=== PATIENT | female | born 2000 | race Caucasian/White ===

== ENCOUNTER 2018-02-12 11:05 | Emergency (ER) | payer OTHER ==
[~2018-02-12] VITALS: Ht 149.9 cm; Wt 71.7 kg
--- OUTSIDE RECORDS SUMMARY | 2018-02-12 11:11 | XMS REPORT | Continuity of Care Document ---
Demographics Preferred Language Unknown Marital Status Unknown Yazdanism Affiliation Unknown Race Unknown Ethnic Group Unknown Author Author [facility] Address Unknown Phone Unavailable Allergies There is no data. Medications There is no data. Problems There is no data. Procedures There is no data. Results There is no data. Encounters ACCT No. Visit Date/Time Discharge Status Pt. Type Provider Facility Loc./Unit Complaint [id number] 09/18/2012 14:25:43 RECURRING
--- NOTE | 2018-02-12 11:21 | ED Abdominal Pain ---
General Chief Complaint: Abdominal/GI Problems Stated Complaint: ABD PAIN Source of Information: Patient, Family Exam Limitations: No Limitations History of Present Illness Date Seen by Provider: Feb 12, 2018 Time Seen by Provider: 11:19 Initial Comments To ER with right-sided abdominal pain for the past few days. She was evaluated initially at an ER while she was in [facility]. a few days ago She was told she had a bad gallbladder. She then followed up at [facility] emergency room last night with a CT scan. She was told that she had a bad gallbladder that could rupture at any minute she states. However After getting back to the room she states she was then told that her gallbladder looked fine on CT. She has persistent pain rated at 10 out of 10 worsened by food in the right upper quadrant.Shes Had poor food intake for 2-3 days. She's been able to drink water and Gatorade. No bowel movement for a few days. Timing/Duration: 2-3 Days Severity/Quality: Moderate Location: RUQ Radiation: Back Activities at Onset: None Associated Symptoms: Nausea/Vomiting Allergies and Home Medications Allergies Coded Allergies: oxycodone (Verified Allergy, Unknown, 02/12/18) Home Medications Pantoprazole Sodium 40 Mg Tablet.dr, 40 MG PO DAILY Prescribed by: ELEUTERIO BURGESS on 02/12/18 1252 Patient Home Medication List Home Medication List Reviewed: Yes Review of Systems Constitutional: see HPI EENTM: No Symptoms Reported Respiratory: No Symptoms Reported Cardiovascular: No Symptoms Reported Gastrointestinal: See HPI, Abdominal Pain, Nausea Genitourinary: No Symptoms Reported Musculoskeletal: no symptoms reported Skin: no symptoms reported Psychiatric/Neurological: No Symptoms Reported Endocrine: No Symptoms Reported Hematologic/Lymphatic: No Symptoms Reported Past Ynfzchc-Mjpgjo-Rlfkgn Hx Patient Social History Recent Foreign Travel: No Contact w/Someone Who Travel: No Physical Exam Vital Signs Vital Signs - First Documented 02/12/18 11:18 Temp 98.0 Pulse 67 Resp 20 B/P (MAP) 117/75 Capillary Refill : Height/Weight/BMI Height: '" Weight: lbs. oz. kg; BMI Method: General Appearance: WD/WN, no apparent distress, other (stoic, rates pain at "10 out of 10, Im just used to it by now") HEENT: PERRL/EOMI, normal ENT inspection Respiratory: normal breath sounds, no respiratory distress, no accessory muscle use Cardiovascular: regular rate, rhythm, no murmur Gastrointestinal: normal bowel sounds, soft, tenderness Extremities: normal range of motion, non-tender Neurologic/Psychiatric: alert, normal mood/affect, oriented x 3 Skin: normal color, warm/dry Progress/Results/Core Measures Results/Orders Lab Results Laboratory Tests Test 02/12/18 11:16 Range/Units White Blood Count 6.1 4.3-11.0 10^3/uL Red Blood Count 4.70 4.35-5.85 10^6/uL Hemoglobin 12.6 11.5-16.0 G/DL Hematocrit 39 35-52 % Mean Corpuscular Volume 83 80-99 FL Mean Corpuscular Hemoglobin 27 25-34 PG Mean Corpuscular Hemoglobin Concent 32 32-36 G/DL Red Cell Distribution Width 14.7 H 10.0-14.5 % Platelet Count 274 130-400 10^3/uL Mean Platelet Volume 10.0 7.4-10.4 FL Neutrophils (%) (Auto) 43 42-75 % Lymphocytes (%) (Auto) 47 H 12-44 % Monocytes (%) (Auto) 10 0-12 % Eosinophils (%) (Auto) 1 0-10 % Basophils (%) (Auto) 0 0-10 % Neutrophils # (Auto) 2.6 1.8-7.8 X 10^3 Lymphocytes # (Auto) 2.8 1.0-4.0 X 10^3 Monocytes # (Auto) 0.6 0.0-1.0 X 10^3 Eosinophils # (Auto) 0.0 0.0-0.3 10^3/uL Basophils # (Auto) 0.0 0.0-0.1 10^3/uL Sodium Level 141 135-145 MMOL/L Potassium Level 4.1 3.6-5.0 MMOL/L Chloride Level 108 H 98-107 MMOL/L Carbon Dioxide Level 26 21-32 MMOL/L Anion Gap 7 5-14 MMOL/L Blood Urea Nitrogen 9 7-18 MG/DL Creatinine 0.74 0.60-1.30 MG/DL Estimat Glomerular Filtration Rate > 60 BUN/Creatinine Ratio 12 Glucose Level 90 70-105 MG/DL Calcium Level 9.2 8.5-10.1 MG/DL Total Bilirubin 0.7 0.1-1.0 MG/DL Aspartate Amino Transf (AST/SGOT) 25 5-34 U/L Alanine Aminotransferase (ALT/SGPT) 31 0-55 U/L Alkaline Phosphatase 102 40-136 U/L Total Protein 7.3 6.4-8.2 GM/DL Albumin 4.5 3.2-4.5 GM/DL Lipase 17 8-78 U/L Serum Test, Qualitative NEGATIVE NEGATIVE My Orders Orders - ELEUTERIO BURGESS APRN Cbc With Automated Diff (02/12/18 11:17) Lipase (02/12/18 11:17) Comprehensive Metabolic Panel (02/12/18 11:17) Hcg,Qualitative Serum (02/12/18 11:17) Ketorolac Injection (Toradol Injection) (02/12/18 11:30) Fentanyl Injection (Sublimaze Injection (02/12/18 11:30) Ondansetron Injection (Zofran Injectio (02/12/18 11:30) Us Gallbladder [id number] (02/12/18 11:17) Antacid Suspension (Mylanta Suspension (02/12/18 12:30) Lidocaine 2% Viscous 15 Ml (Xylocaine Vi (02/12/18 12:30) Medications Given in ED Current Medications Medications Dose Ordered Sig/Christiano Route Start Time Stop Time Status Last Admin Dose Admin Al Hydrox/Mg Hydrox/Simethicone 30 ml ONCE ONCE PO 02/12/18 12:30 02/12/18 12:31 DC 02/12/18 12:31 30 ML Fentanyl Citrate 50 mcg ONCE ONCE IVP 02/12/18 11:30 02/12/18 11:31 DC 02/12/18 11:39 50 MCG Ketorolac Tromethamine 15 mg ONCE ONCE IVP 02/12/18 11:30 02/12/18 11:31 DC 02/12/18 11:39 15 MG Lidocaine HCl 15 ml ONCE ONCE PO 02/12/18 12:30 02/12/18 12:31 DC 02/12/18 12:31 15 ML Ondansetron HCl 4 mg ONCE ONCE IVP 02/12/18 11:30 02/12/18 11:31 DC 02/12/18 11:39 4 MG Vital Signs/I&O 02/12/18 11:18 Temp 98.0 Pulse 67 Resp 20 B/P (MAP) 117/75 Diagnostic Imaging Diagonstic Imaging: Ultrasound Comments NAME: [facility] REC#: [id number] PT STATUS: REG ER : 2000 PHYSICIAN: ELEUTERIO BURGESS APRN ADMIT DATE: 02/12/18/ER Draft Date of Exam:02/12/18 US GALLBLADDER [id number] PROCEDURE: US Gallbladder. TECHNIQUE: Multiple real-time grayscale images were obtained over the right upper quadrant in various projections. INDICATION: Right upper quadrant pain. FINDINGS: The liver is normal in size and without focal lesions. There is no biliary ductal dilatation. Common bile duct is not well visualized. There is no cholelithiasis, gallbladder wall thickening or pericholecystic fluid. Pancreas is obscured by bowel gas. Right kidney is normal. There is no ascites. IMPRESSION: Common bile duct and pancreas are obscured by bowel gas. Otherwise unremarkable right upper quadrant ultrasound. Dictated on workstation # [id number] Dict: 02/12/18 1238 Trans: 02/12/18 1244 [id number] Interpreted by: YANNICK ELI MD Electronically signed by: Departure Communication (Admissions) Reports that the GI cocktail "made it worse". Impression Primary Impression: RUQ abdominal pain Disposition: 01 HOME, SELF-CARE Condition: Stable Departure-Patient Inst. Decision time for Depature: 12:50 Referrals: BEAU VELÁSQUEZ DO NO,LOCAL PHYSICIAN (PCP) Primary Care Physician Patient Instructions: Acute Abdomen (Belly Pain), Adult (DC) Add. Discharge Instructions: 1. Youre scheduled to see Dr. Velásquez tomorrow at 1 PM. They asked that you bring your address, phone number, insurance card (only if you have insurance, dont worry about it if you dont) and $50 for the visit . He will help decide whether you'll need an upper GI scope or a HIDA further evaluate the cause of your pain. Take acid pipe and test supervisor as directed. Return to ER for any concerns. As long as you're taking the pain medication that was prescribed at the other hospital, he also need to be taking a stool softener such as Colace or MiraLAX so that you do not get constipated as pain medications are very constipating which will only worsen her pain. All discharge instructions reviewed with patient and/or family. Voiced understanding. Scripts Pantoprazole Sodium (Protonix) 40 Mg Tablet. 40 MG PO DAILY, #20 TAB Prov: ELEUTERIO BURGESS APRN 02/12/18 Work/School Note: Work Release Form Date Seen in the Emergency Department: Feb 12, 2018 Return to Work: Feb 14, 2018 Copy Copies To 1: JUNIE LOGAN DO; BEAU VELÁSQUEZ DO ELEUTERIO BURGESS APRN Feb 12, 2018 11:20
[2018-02-12] MEDS ORDERED: HYDR-3812 PO (11:28)
[2018-02-12] MEDS ORDERED: KETOROLAC 30 MG/ML VIAL IVP ONE (11:30)
[2018-02-12] MEDS ORDERED: fentaNYL INJECTION 100 MCG/2 ML AMP IVP ONE (11:30)
[2018-02-12] MEDS ORDERED: ONDANSETRON 4 MG/2 ML (SDV) Z0FRAN IVP ONE (11:30)
[2018-02-12 11:31] LABS: BASOPHILS % (AUTO) 0 % (0-10); EOSINOPHILS % (AUTO) 1 % (0-10); HEMATOCRIT 39 % (35-52); HEMOGLOBIN 12.6 G/DL (11.5-16.0); LYMPHOCYTES # (AUTO) 2.8 X 10^3 (1.0-4.0); LYMPHOCYTES % (AUTO) 47 % (12-44); MEAN CORPUSCULAR HEMOGLOBIN 27 PG (25-34); MEAN CORPUSCULAR HGB CONC 32 G/DL (32-36); MEAN CORPUSCULAR VOLUME 83 FL (80-99); MONOCYTES # (AUTO) 0.6 X 10^3 (0.0-1.0); MONOCYTES % (AUTO) 10 % (0-12); NEUTROPHILS # (AUTO) 2.6 X 10^3 (1.8-7.8); NEUTROPHILS % (AUTO) 43 % (42-75); PLATELET COUNT 274 10^3/uL (130-400); RED CELL DISTRIBUTION WIDTH 14.7 % (10.0-14.5); WHITE BLOOD COUNT 6.1 10^3/uL (4.3-11.0)
[2018-02-12 11:43] LABS: ALANINE AMINOTRANSFERASE 31 U/L (0-55); ALBUMIN 4.5 GM/DL (3.2-4.5); ALKALINE PHOSPHATASE 102 U/L (40-136); BILIRUBIN,TOTAL 0.7 MG/DL (0.1-1.0); BUN/CREATININE RATIO 12; CALCIUM 9.2 MG/DL (8.5-10.1); CARBON DIOXIDE 26 MMOL/L (21-32); CHLORIDE 108 MMOL/L (98-107); CREATININE SERUM 0.74 MG/DL (0.60-1.30); GFR ESTIMATED > 60; GLUCOSE 90 MG/DL (70-105); LIPASE 17 U/L (8-78); POTASSIUM 4.1 MMOL/L (3.6-5.0); SODIUM 141 MMOL/L (135-145); TOTAL PROTEIN 7.3 GM/DL (6.4-8.2)
[2018-02-12] MEDS ORDERED: ANTACID SUSP 30 ML UDC (MYLANTA) PO ONE (12:30)
[2018-02-12] MEDS ORDERED: LIDOCAINE 2% VISCOUS 15 ML UDC PO ONE (12:30)
--- NOTE | 2018-02-12 12:44 | Diagnostic Imaging Report ---
PROCEDURE: US Gallbladder. TECHNIQUE: Multiple real-time grayscale images were obtained over the right upper quadrant in various projections. INDICATION: Right upper quadrant pain. FINDINGS: The liver is normal in size and without focal lesions. There is no biliary ductal dilatation. Common bile duct is not well visualized. There is no cholelithiasis, gallbladder wall thickening or pericholecystic fluid. Pancreas is obscured by bowel gas. Right kidney is normal. There is no ascites. IMPRESSION: Common bile duct and pancreas are obscured by bowel gas. Otherwise unremarkable right upper quadrant ultrasound. Dictated by: Dictated on workstation # [id number]
[2018-02-12] MEDS ORDERED: PANT40TA2 PO (12:52)
== END 2018-02-12 13:14 | disposition home or self-care (01) ==
LOC: EDUNIT# 11:05 → ER 11:07
DX: R10.11 Right upper quadrant pain (principal); Z88.5 Allergy status to narcotic agent
CPT/HCPCS: 36415; 76705; 80053; 83690; 84703; 85025; 96374; 96375

== ENCOUNTER 2018-02-14 16:35 | Emergency (ER) | payer OTHER ==
[~2018-02-14] VITALS: Ht 149.9 cm; Wt 71.7 kg
[~2018-02-14 16:35] MED LIST: HYDR-3812 PO; PANT40TA2 PO
--- OUTSIDE RECORDS SUMMARY | 2018-02-14 16:40 | XMS REPORT | Continuity of Care Document ---
Demographics Preferred Language Unknown Marital Status Unknown Evangelical Affiliation Unknown Race Unknown Ethnic Group Unknown Author Author [facility] Address Unknown Phone Unavailable Allergies Active Description Code Type Severity Reaction Onset Reported/Identified Relationship to Patient Clinical Status Yes Oxycontin 946 Miscellaneous Allergy N/A N/A 02/11/2018 Medications There is no data. Problems There is no data. Procedures There is no data. Results Test Result Range CBC/ AUTO DIFF - 02/09/18 15:45 WHITE BLOOD COUNT 7.62 10 4.5-13.0 HEMATOCRIT 42.9 % 36.0-46.0 HEMOGLOBIN 13.9 g/dl 12.0-16.0 PLATELET COUNT 272 10 142-424 RBC 5.23 10 4.0-5.2 MCV 82.0 fl 80.0-100.0 MCH 26.6 pg 26.0-34.0 MCHC 32.4 g/dl 29.0-37.0 RDW 14.4 % 11.5-14.5 MPV 9.90 fl GRAN% 52.8 % 37.0-80.0 LYMPH% 37.50 % 10.00-50.00 MONO% 8.70 % 0.00-12.00 EOS% 0.70 % 0.00-7.00 BASO% 0.30 % 0.00-2.50 GRAN# 4.03 10 2.00-6.90 LYMPH# 2.86 10 0.60-3.40 MONO# 0.66 10 0.00-0.90 EOS# 0.05 10 0.00-0.50 BASO# 0.02 10 0.00-0.20 COMPREHENSIVE METABOL - 02/09/18 15:45 CREATININE 0.7 mg/dl 0.6-1.3 SODIUM 141 mmol/L 136-145 TOTAL BILIRUBIN 0.3 mg/dl 0.0-1.0 TOTAL PROTEIN 8.5 g/dl 6.4-8.2 ALBUMIN 4.2 g/dl 3.4-5.0 ALK. PHOSPHATASE 119 U/L 50-136 BUN 11 mg/dl 7-18 CALCIUM 9.5 mg/dl 8.5-10.1 CHLORIDE 102 mmol/L 98-107 CO2 32.4 mmol/L 21.0-32.0 GLUCOSE 87 mg/dl 70-110 POTASSIUM 3.8 mmol/L 3.5-5.1 AST 23 U/L 15-37 ALT 43 U/L 12-78 AGAP 10.4 6.0-16.0 BN/CR 15.7 6.0-20.0 AMYLASE - 02/09/18 15:45 AMYLASE 63 U/L 25-115 LIPASE - 02/09/18 15:45 LIPASE 127 U/L 73-393 Encounters ACCT No. Visit Date/Time Discharge Status Pt. Type Provider Facility Loc./Unit Complaint [id number] 09/18/2012 14:25:43 RECURRING [id number] 02/09/2018 15:04:00 02/09/2018 17:05:00 DIS Emergency MAGALYS JUNE ( [facility]
--- NOTE | 2018-02-14 17:33 | ED GI ---
General Chief Complaint: Abdominal/GI Problems Stated Complaint: VOMITING BLOOD Nursing Triage Note: PATIENT HERE AFTER HAVING SEVERAL ER VISITS IN THE LAST WEEK FOR ABDOMINAL PAIN. SHE SAW DR. AGUAYO YESTERDAY AND IS SCHEDULED FOR AN UPPER GI SCOPE ON SUNDAY NEXT WEEK. SHE IS HERE TODAY BECAUSE SHE VOMITED X1 THIS MORNING IN THE SHOWER. STATES IT WAS YELLOW IN APPEARANCE WITH SOME RED FLECKS OF BLOOD. Source of Information: Patient Exam Limitations: No Limitations History of Present Illness Date Seen by Provider: Feb 14, 2018 Time Seen by Provider: 17:28 Initial Comments The patient is a 19/70 be 18-year-old white female. She reports here today with complaints of vomiting, abdominal pain, and some flecks of blood. She also reports black stools but has been taking Pepto-Bismol. She has had several admissions to the emergency room for abdominal pain. She has seen Dr. Aguayo and has been scheduled for an upper endoscopy on Sunday. She reports that she was in the shower this morning and then felt nauseated and vomited with flecks of blood. She reports one other previous vomitus with flecks of blood. She is taking Severity/Quality: Mild, Moderate Location: RUQ, RLQ, Other (some heartburn) Radiation: No Radiation Associated Symptoms: Denies Symptoms Allergies and Home Medications Allergies Coded Allergies: oxycodone (Verified Allergy, Unknown, 02/12/18) Home Medications Pantoprazole Sodium 40 Mg Tablet.dr, 40 MG PO DAILY Prescribed by: ELEUTERIO BURGESS on 02/12/18 1252 Review of Systems Constitutional: see HPI EENTM: No Symptoms Reported Respiratory: No Symptoms Reported Cardiovascular: No Symptoms Reported Gastrointestinal: See HPI Genitourinary: No Symptoms Reported Musculoskeletal: no symptoms reported Skin: no symptoms reported Psychiatric/Neurological: No Symptoms Reported Endocrine: No Symptoms Reported Past Mrlsmel-Iwntac-Iakaun Hx Patient Social History Alcohol Use: Denies Use Recreational Drug Use: No Type Used: Cigarettes Recent Foreign Travel: No Contact w/Someone Who Travel: No Recent Infectious Disease Expo: No Ebola Symptoms: Denies Symptoms Listed Physical Abuse: No Sexual Abuse: No Past Medical History Orthopedic Respiratory: No Cardiac: No Neurological: No Genitourinary: No Gastrointestinal: No Musculoskeletal: No Endocrine: No HEENT: No Cancer: No Psychosocial: No Nursing Suicide Risk Score: 0 Integumentary: No Blood Disorders: No Physical Exam Vital Signs Vital Signs - First Documented 02/14/18 16:42 Temp 97.8 Pulse 92 Resp 20 B/P (MAP) 108/64 Capillary Refill : Height/Weight/BMI Height: 4'11.00" Weight: 158lbs. 0oz. 71.148288wt; 28.12 BMI Method:Stated General Appearance: WD/WN, no apparent distress HEENT: normal ENT inspection Neck: full range of motion Respiratory: chest non-tender, lungs clear, normal breath sounds, no respiratory distress, no accessory muscle use Cardiovascular: normal peripheral pulses, regular rate, rhythm, no edema, no gallop, no JVD, no murmur Gastrointestinal: normal bowel sounds, non tender, soft, no organomegaly, no pulsatile mass Extremities: normal range of motion, non-tender, normal inspection, no pedal edema, no calf tenderness Back: normal inspection Neurologic/Psychiatric: rigger apprentice II-XII nml as tested, no motor/sensory deficits, alert, normal mood/affect, oriented x 3 Skin: normal color, warm/dry Lymphatic: no adenopathy Progress/Results/Core Measures Results/Orders My Orders Orders - JULEE GOMEZ MD Cbc With Automated Diff (02/14/18 17:17) Comprehensive Metabolic Panel (02/14/18 17:17) Vital Signs/I&O 02/14/18 16:42 Temp 97.8 Pulse 92 Resp 20 B/P (MAP) 108/64 Departure Departure-Patient Inst. Referrals: NO,LOCAL PHYSICIAN (PCP/Family) Primary Care Physician JULEE GOMEZ MD Feb 14, 2018 17:32
== END 2018-02-14 17:40 | disposition left against medical advice (07) ==
LOC: EDUNIT# 16:35 → ER 16:37
DX: K92.0 Hematemesis (principal); R10.11 Right upper quadrant pain; R10.12 Left upper quadrant pain; K21.9 Gastro-esophageal reflux disease without esophagitis; Z88.8 Allergy status to other drugs, medicaments and biological substances
CPT/HCPCS: 99282

== ENCOUNTER 2018-02-21 05:36 | Outpatient (CLI) | payer OTHER ==
[~2018-02-21] VITALS: Ht 149.9 cm; Wt 73.9 kg
== END 2018-02-21 11:40 | disposition home or self-care (01) ==
LOC: PREOP 05:36
PROVIDERS: ATTEND Surgery
DX: Z01.818 Encounter for other preprocedural examination (principal)

== ENCOUNTER 2018-09-21 16:18 | Emergency (ER) | payer SELFPAY ==
[~2018-09-21] VITALS: Ht 170.2 cm; Wt 81.6 kg
--- NOTE | 2018-09-21 16:31 | ED Lower Extremity ---
General Stated Complaint: FOOT INJURY History of Present Illness Date Seen by Provider: Sep 21, 2018 Time Seen by Provider: 16:20 Initial Comments 18-year-old female who stepped on an unknown sharp object when walking in a field. She states her some boards with nails and screws protruding although she did not see the actual thing that she stepped on. Occurred just a few minutes ago. Has had some bleeding which is now stopped and pain since. Denies other known medical problems. Onset: just prior to arrival Pain/Injury Location: left foot Allergies and Home Medications Allergies Coded Allergies: oxycodone (Verified Allergy, Unknown, 02/12/18) Home Medications Pantoprazole Sodium 40 Mg Tablet.dr, 40 MG PO DAILY Prescribed by: BEAU VELÁSQUEZ on 02/26/18 1203 Patient Home Medication List Home Medication List Reviewed: Yes Review of Systems Constitutional: see HPI EENTM: see HPI Respiratory: no symptoms reported Cardiovascular: no symptoms reported Gastrointestinal: no symptoms reported Genitourinary: no symptoms reported Musculoskeletal: see HPI Skin: see HPI Psychiatric/Neurological: No Symptoms Reported All Other Systems Reviewed Negative Unless Noted: Yes (Negative excepted noted.) Past Pjfubmb-Ckgnro-Gtddsq Hx Past Med/Social Hx: Reviewed Nursing Past Med/Soc Hx Patient Social History Smoking Status: Former Smoker Type Used: Cigarettes Recent Foreign Travel: No (N) Contact w/Someone Who Travel: No (N) Recent Hopitalizations: No Seasonal Allergies Seasonal Allergies: No Past Medical History Orthopedic Respiratory: No Cardiac: No Neurological: No Reproductive Disorders: No Genitourinary: No Gastrointestinal: No Musculoskeletal: No Endocrine: No HEENT: No Cancer: No Psychosocial: No Depression Integumentary: No Blood Disorders: No Physical Exam Vital Signs Vital Signs - First Documented 09/21/18 16:32 Temp 98.9 Pulse 113 Resp 18 B/P (MAP) 118/69 (85) Pulse Ox 98 O2 Delivery Room Air Capillary Refill : Height, Weight, BMI Height: 4'11.00" Weight: 163lbs. 0.0oz. 73.481521fs; 32.9 BMI Method:Stated General Appearance: WD/WN, no apparent distress HEENT: normal ENT inspection Neck: non-tender, full range of motion, supple, normal inspection Cardiovascular: normal peripheral pulses, regular rate, rhythm, no edema, no gallop, no JVD, no murmur Respiratory: chest non-tender, lungs clear, normal breath sounds, no respiratory distress, no accessory muscle use Gastrointestinal: normal bowel sounds, non tender, soft, no organomegaly, no pulsatile mass Back: normal inspection, no CVA tenderness, no vertebral tenderness Hips: bilateral hip non-tender, bilateral hip normal inspection, bilateral hip normal range of motion Legs: bilateral leg non-tender, bilateral leg normal inspection, bilateral leg normal range of motion Knees: bilateral knee non-tender, bilateral knee normal inspection, bilateral knee normal range of motion Ankles: bilateral ankle non-tender, bilateral ankle normal inspection, bilateral ankle normal range of motion Feet: left foot pain, left foot other (puncture wound between the fourth and fifth toe at the MTP. This is on the plantar surface.) Neurologic/Tendon: normal sensation, normal motor functions Neurologic/Psychiatric: no motor/sensory deficits Skin: normal color, warm/dry Lymphatic: no adenopathy Progress/Results/Core Measures Results/Orders My Orders Orders - RAMÓN GONZALES MD Foot 3 View Left (09/21/18 16:27) Ibuprofen Tablet (Motrin Tablet) (09/21/18 16:59) Vital Signs/I&O 09/21/18 16:32 Temp 98.9 Pulse 113 Resp 18 B/P (MAP) 118/69 (85) Pulse Ox 98 O2 Delivery Room Air Progress Progress Note : Time: 16:31 Progress Note Tetanus vaccine is reportedly current. We'll obtain a radiograph to rule out foreign body or bony injury. Discussed at length with patient and mother. 1729 Pain improved after ibuprofen. Reviewed x-ray findings. Will cover with abx and treat pain with ibuprofen. Diagnostic Imaging Diagonstic Imaging: Xray Plain Films/CT/US/NM/MRI: other (foot) Comments No bony abnormalities. JDO Departure Impression Primary Impression: Puncture wound of foot excluding toes without complication Qualified Codes: S91.332A - Puncture wound without foreign body, left foot, initial encounter Disposition: 01 HOME, SELF-CARE Condition: Improved Departure-Patient Inst. Decision time for Depature: 17:31 Referrals: NO,LOCAL PHYSICIAN (PCP/Family) Primary Care Physician 2-3 days, sooner as needed. Patient Instructions: Wound Care (DC) Add. Discharge Instructions: Keep clean and dry. Scripts Ibuprofen (Ibuprofen) 800 Mg Tablet 800 MG PO Q8H PRN for PAIN, #30 TAB 0 Refills Prov: RAMÓN GONZALES MD 09/21/18 Cephalexin (Cephalexin) 500 Mg Tablet 500 MG PO QID, #20 TAB 0 Refills Prov: RAMÓN GONZALES MD 09/21/18 RAMÓN GONZALES MD Sep 21, 2018 16:31
[2018-09-21] MEDS ORDERED: IBUPROFEN 800 MG (MOTRIN) TAB PO STA (16:59)
[2018-09-21] MEDS ORDERED: CEPH500T PO (17:32)
[2018-09-21] MEDS ORDERED: IBUP-1780 PO (17:33)
--- NOTE | 2018-09-21 17:45 | Diagnostic Imaging Report ---
INDICATION: Puncture wound. EXAMINATION: Left foot at 4:57 p.m. Three views were obtained. COMPARISON: There are no prior studies available for comparison. FINDINGS: Reportedly, there is clinical concern regarding a puncture wound to the plantar surface of the foot. On the lateral view, there is no sign of a radiopaque foreign body. There is no fracture or acute bony abnormality appreciated either. IMPRESSION: There is no evidence for a radiopaque foreign body or for an acute bony abnormality. Dictated by: Dictated on workstation # [id number]
[2018-09-21 17:49] VITALS: BP 118/69
== END 2018-09-21 17:49 | disposition home or self-care (01) ==
LOC: EDUNIT# 16:18 → ER FS 16:20
DX: S91.332A Puncture wound without foreign body, left foot, initial encounter (principal); F32.9 Major depressive disorder, single episode, unspecified; Z88.5 Allergy status to narcotic agent; Z87.891 Personal history of nicotine dependence; W45.0XXA Nail entering through skin, initial encounter; Y92.328 Other athletic field as the place of occurrence of the external cause; Y93.01 Activity, walking, marching and hiking
CPT/HCPCS: 73630

== ENCOUNTER 2020-01-16 19:47 | Emergency (ER) | payer SELFPAY ==
[~2020-01-16] VITALS: Ht 152.4 cm; Wt 75.5 kg
[~2020-01-16 19:47] MED LIST changes: +ACHD5005 PO; +CEPH500T PO; -HYDR-3812 PO; +IBUP-1780 PO
--- NOTE | 2020-01-16 19:49 | ED General ---
General Stated Complaint: ALCOHOL POISONING History of Present Illness Date Seen by Provider: Jan 16, 2020 Time Seen by Provider: 19:49 Initial Comments 19-year-old female dropped off in the ER. Patient was dropped off because she's dry heaving and highly intoxicated. Patient drank a lot of "Everclear" patient feels sick to her stomach. No reports of her try to hurt herself, no fevers chills or other systemic complaints. Allergies and Home Medications Allergies Coded Allergies: oxycodone (Verified Allergy, Unknown, 02/12/18) Home Medications Cephalexin 500 Mg Tablet, 500 MG PO QID Prescribed by: RAMÓN GONZALES on 09/21/18 1732 Ibuprofen 800 Mg Tablet, 800 MG PO Q8H PRN for PAIN Prescribed by: RAMÓN GONZALES on 09/21/18 1733 Pantoprazole Sodium 40 Mg Tablet.dr, 40 MG PO DAILY Prescribed by: BEAU VELÁSQUEZ on 02/26/18 1203 Patient Home Medication List Home Medication List Reviewed: Yes Review of Systems Review of Systems Constitutional: No chills, No fever EENTM: no symptoms reported Respiratory: no symptoms reported Gastrointestinal: nausea, vomiting Genitourinary: no symptoms reported Musculoskeletal: no symptoms reported Skin: no symptoms reported Past Rpqmbrm-Gmblcc-Nmmfoc Hx Past Med/Social Hx: Reviewed Nursing Past Med/Soc Hx Physical Exam Vital Signs Vital Signs - First Documented 01/16/20 19:47 Temp 36.7 Pulse 84 Resp 15 B/P (MAP) 126/75 (92) Pulse Ox 97 O2 Delivery Room Air Capillary Refill : Height, Weight, BMI Height: '" Weight: lbs. oz. kg; BMI Method: General Appearance: Other (obviously intoxicated) Eyes: Bilateral Eye Normal Inspection Neck: Normal Inspection, Non Tender Respiratory: Lungs Clear, Normal Breath Sounds Cardiovascular: Regular Rate, Rhythm, Normal Peripheral Pulses Gastrointestinal: Non Tender, Soft Extremity: Normal Capillary Refill Neurologic/Psychiatric: Other (intoxicated but no acute neurologic findings) Skin: Normal Color, Warm/Dry Progress/Results/Core Measures Suspected Sepsis SIRS Temperature: Pulse: Respiratory Rate: Laboratory Tests 01/16/20 19:55: White Blood Count 8.4 Blood Pressure / Mean: Laboratory Tests 01/16/20 19:55: Creatinine 0.74, Platelet Count 354, Total Bilirubin 0.3 Results/Orders Lab Results Laboratory Tests Test 01/16/20 19:55 01/16/20 20:00 Range/Units White Blood Count 8.4 4.3-11.0 10^3/uL Red Blood Count 5.19 4.35-5.85 10^6/uL Hemoglobin 14.2 11.5-16.0 G/DL Hematocrit 43 35-52 % Mean Corpuscular Volume 83 80-99 FL Mean Corpuscular Hemoglobin 27 25-34 PG Mean Corpuscular Hemoglobin Concent 33 32-36 G/DL Red Cell Distribution Width 13.0 10.0-14.5 % Platelet Count 354 130-400 10^3/uL Mean Platelet Volume 9.8 7.4-10.4 FL Neutrophils (%) (Auto) 61 42-75 % Lymphocytes (%) (Auto) 30 12-44 % Monocytes (%) (Auto) 6 0-12 % Eosinophils (%) (Auto) 2 0-10 % Basophils (%) (Auto) 0 0-10 % Neutrophils # (Auto) 5.1 1.8-7.8 X 10^3 Lymphocytes # (Auto) 2.5 1.0-4.0 X 10^3 Monocytes # (Auto) 0.5 0.0-1.0 X 10^3 Eosinophils # (Auto) 0.2 0.0-0.3 10^3/uL Basophils # (Auto) 0.0 0.0-0.1 10^3/uL Sodium Level 142 135-145 MMOL/L Potassium Level 3.6 3.6-5.0 MMOL/L Chloride Level 103 98-107 MMOL/L Carbon Dioxide Level 23 21-32 MMOL/L Anion Gap 16 H 5-14 MMOL/L Blood Urea Nitrogen 9 7-18 MG/DL Creatinine 0.74 0.60-1.30 MG/DL Estimat Glomerular Filtration Rate > 60 BUN/Creatinine Ratio 12 Glucose Level 117 H 70-105 MG/DL Calcium Level 9.5 8.5-10.1 MG/DL Corrected Calcium 8.5-10.1 MG/DL Total Bilirubin 0.3 0.1-1.0 MG/DL Aspartate Amino Transf (AST/SGOT) 28 5-34 U/L Alanine Aminotransferase (ALT/SGPT) 35 0-55 U/L Alkaline Phosphatase 118 40-136 U/L Total Protein 8.2 6.4-8.2 GM/DL Albumin 5.0 H 3.2-4.5 GM/DL Salicylates Level 0.7 L 5.0-20.0 MG/DL Acetaminophen Level < 10 L 10-30 UG/ML Serum Alcohol 100 H <10 MG/DL Urine Color YELLOW Urine Clarity CLEAR Urine pH 5.5 5-9 Urine Specific [place] 1.010 L 1.016-1.022 Urine Protein NEGATIVE NEGATIVE Urine Glucose (UA) NEGATIVE NEGATIVE Urine Ketones NEGATIVE NEGATIVE Urine Nitrite NEGATIVE NEGATIVE Urine Bilirubin NEGATIVE NEGATIVE Urine Urobilinogen 0.2 < = 1.0 MG/DL Urine Leukocyte Esterase TRACE H NEGATIVE Urine RBC (Auto) 1+ H NEGATIVE Urine RBC NONE /HPF Urine WBC 5-10 H /HPF Urine Squamous Epithelial Cells 10-25 H /HPF Urine Crystals NONE /LPF Urine Bacteria FEW H /HPF Urine Casts PRESENT /LPF Urine Hyaline Casts 2-5 H /LPF Urine Mucus NEGATIVE /LPF Urine Culture Indicated YES Urine Opiates Screen NEGATIVE NEGATIVE Urine Oxycodone Screen NEGATIVE NEGATIVE Urine Methadone Screen NEGATIVE NEGATIVE Urine Propoxyphene Screen NEGATIVE NEGATIVE Urine Barbiturates Screen NEGATIVE NEGATIVE Ur Tricyclic Antidepressants Screen NEGATIVE NEGATIVE Urine Phencyclidine Screen NEGATIVE NEGATIVE Urine Amphetamines Screen NEGATIVE NEGATIVE Urine Methamphetamines Screen NEGATIVE NEGATIVE Urine Benzodiazepines Screen NEGATIVE NEGATIVE Urine Cocaine Screen NEGATIVE NEGATIVE Urine Cannabinoids Screen NEGATIVE NEGATIVE My Orders Orders - GARCIA,THAD L DO Ua Culture If Indicated (01/16/20 19:49) Cbc With Automated Diff (01/16/20 19:49) Comprehensive Metabolic Panel (01/16/20 19:49) Alcohol (01/16/20 19:49) Drug Screen Stat (Urine) (01/16/20 19:49) Acetaminophen (01/16/20 19:49) Salicylate (01/16/20 19:49) Ed Iv/Invasive Line Start (01/16/20 19:49) Ed Iv/Invasive Line Start (01/16/20 19:49) Ondansetron Injection (Zofran Injectio (01/16/20 20:00) Lactated Ringers (Lr 1000 Ml Iv Solution (01/16/20 19:51) Urine Culture (01/16/20 20:00) Medications Given in ED Current Medications Medications Dose Ordered Sig/Christiano Route Start Time Stop Time Status Last Admin Dose Admin Ondansetron HCl 4 mg ONCE ONCE IVP 01/16/20 20:00 01/16/20 20:01 DC 01/16/20 19:58 4 MG Vital Signs/I&O 01/16/20 19:47 Temp 36.7 Pulse 84 Resp 15 B/P (MAP) 126/75 (92) Pulse Ox 97 O2 Delivery Room Air Capillary Refill : Departure Impression Primary Impression: Acute alcoholic intoxication Qualified Codes: F10.920 - Alcohol use, unspecified with intoxication, uncomplicated Disposition: 01 HOME, SELF-CARE Condition: Stable Departure-Patient Inst. Patient Instructions: Effects of Alcohol on Your Health, Alcohol Use - When Is Drinking a Problem? THAD GARCIA DO Jan 16, 2020 19:49
[2020-01-16] MEDS ORDERED: LACTATED RINGERS 1,000 ML IV STA (19:51)
[2020-01-16] MEDS ORDERED: ONDANSETRON 4 MG/2 ML (SDV) Z0FRAN IVP ONE (20:00)
--- NOTE | 2020-01-16 20:00 | NUR ---
pt able to ambulate to bathroom without difficulty
[2020-01-16 20:11] LABS: BASOPHILS % (AUTO) 0 % (0-10); EOSINOPHILS # (AUTO) 0.2 10^3/uL (0.0-0.3); EOSINOPHILS % (AUTO) 2 % (0-10); HEMATOCRIT 43 % (35-52); HEMOGLOBIN 14.2 G/DL (11.5-16.0); LYMPHOCYTES # (AUTO) 2.5 X 10^3 (1.0-4.0); LYMPHOCYTES % (AUTO) 30 % (12-44); MEAN CORPUSCULAR HEMOGLOBIN 27 PG (25-34); MEAN CORPUSCULAR HGB CONC 33 G/DL (32-36); MEAN CORPUSCULAR VOLUME 83 FL (80-99); MEAN PLATELET VOLUME 9.8 FL (7.4-10.4); MONOCYTES # (AUTO) 0.5 X 10^3 (0.0-1.0); MONOCYTES % (AUTO) 6 % (0-12); NEUTROPHILS # (AUTO) 5.1 X 10^3 (1.8-7.8); NEUTROPHILS % (AUTO) 61 % (42-75); PLATELET COUNT 354 10^3/uL (130-400); WHITE BLOOD COUNT 8.4 10^3/uL (4.3-11.0)
[2020-01-16 20:12] LABS: BACTERIA,URINE FEW /HPF; BILIRUBIN,URINE NEGATIVE (NEGATIVE); CLARITY,URINE CLEAR; COLOR,URINE YELLOW; GLUCOSE, URINE (UA) NEGATIVE (NEGATIVE); KETONES,URINE NEGATIVE (NEGATIVE); LEUKOCYTE ESTERASE ,URINE TRACE (NEGATIVE); NITRITE,URINE NEGATIVE (NEGATIVE); PH,URINE 5.5 (5-9); PROTEIN,URINE NEGATIVE (NEGATIVE)
[2020-01-16 20:14] LABS: AMPHETAMINE SCREEN, URINE NEGATIVE (NEGATIVE); BARBITURATE SCREEN URINE NEGATIVE (NEGATIVE); BENZODIAZEPINES SCREEN URINE NEGATIVE (NEGATIVE); CANNABINOID SCREEN, URINE NEGATIVE (NEGATIVE); COCAINE SCREEN URINE NEGATIVE (NEGATIVE); METHADONE STAT NEGATIVE (NEGATIVE); METHAMPHETAMINE SCREEN URINE S NEGATIVE (NEGATIVE); OPIATE SCREEN URINE NEGATIVE (NEGATIVE); OXYCODONE STAT NEGATIVE (NEGATIVE); PROPOXYPHENE STAT NEGATIVE (NEGATIVE); TRICYCLIC ANTIDEPRESSANTS SCRE NEGATIVE (NEGATIVE)
[2020-01-16 20:23] LABS: ALANINE AMINOTRANSFERASE 35 U/L (0-55); ALKALINE PHOSPHATASE 118 U/L (40-136); BILIRUBIN,TOTAL 0.3 MG/DL (0.1-1.0); BUN/CREATININE RATIO 12; CALCIUM 9.5 MG/DL (8.5-10.1); CARBON DIOXIDE 23 MMOL/L (21-32); CHLORIDE 103 MMOL/L (98-107); CREATININE SERUM 0.74 MG/DL (0.60-1.30); GFR ESTIMATED > 60; GLUCOSE 117 MG/DL (70-105); POTASSIUM 3.6 MMOL/L (3.6-5.0); SODIUM 142 MMOL/L (135-145); TOTAL PROTEIN 8.2 GM/DL (6.4-8.2)
[2020-01-16 20:24] LABS: ACETAMINOPHEN < 10 UG/ML (10-30); SALICYLATE 0.7 MG/DL (5.0-20.0)
[2020-01-16 20:45] VITALS: BP 98/66
--- OUTSIDE RECORDS SUMMARY | 2020-01-16 21:36 | XMS REPORT | Continuity of Care Document ---
Demographics Preferred Language Unknown Marital Status Unknown Holiness Affiliation Unknown Race Unknown Ethnic Group Unknown Author Organization Unknown Address Unknown Phone Unavailable Allergies Active Description Code Type Severity Reaction Onset Reported/Identified Relationship to Patient Clinical Status Yes OXYCONTIN UNKNOWN UNKNOWN Yes Oxycontin 946 Miscellaneous Aller gy N/A N/A 02/11/2018 Yes oxycodone [id number] Drug Allergy Unknown N/A 02/12/2018 Medications Medication Packaging Start Date St op Date Route Dosage Sig ONDANSETRON VIAL INJ 4 MG/2CC (ZOFRAN 2CC VIAL) MG 02/11/2018 02/11/2018 ONCE&2204 NORMAL SALINE 1000CC IV BAG INJ 0.9 % (NS 1000CC IV BAG) ml 02/11/2018 02/26/2018 CONTINUOUSEVERY 0 Hour FENTANYL INJ 100 MCG/2CC VIAL MCG 02/11/2018 02/11/2018 ONCE&2205 DIPHENHYDRAMINE VIAL INJ 50 MG/CC (BENADRYL VIAL) MG 02/11/2018 02/11/2018 ONCE&2254 Problems Date Dx Coded Attending Type Code Diagnosis Diagnosed By 02/09/2018 MAURICIO MYERS K81.0 ACUTE CHOLECYSTITIS 02/09/2018 LOCMAURICIO TYSON R10.84 GENERALIZED ABDOMINAL PAIN 02/09/2018 LOCMAURICIO TYSON R11.2 NAUSEA WITH VOMITING, UNSPECIFIED 02/11/2018 ALBERTINA AWAN 787.0 2 NAUSEA ALONE 02/11/2018 ALBERTINA AWAN 789.0 7 ABDOMINAL PAIN, GENERALIZED 02/11/2018 ALBERTINA AWAN R10.8 4 GENERALIZED ABDOMINAL PAIN 02/11/2018 ALBERTINA AWAN R11.0 NAUSEA 02/12/2018 Ot R10.11 RIG HT UPPER QUADRANT PAIN 02/12/2018 Ot Z88.5 KENNY RGY STATUS TO NARCOTIC AGENT STATUS 02/14/2018 Ot K21.9 YISSEL RO-ESOPHAGEAL REFLUX DISEASE WITHOUT 02/14/2018 Ot K92.0 COBY TEMESIS 02/14/2018 Ot R10.11 RIG HT UPPER QUADRANT PAIN 02/14/2018 Ot R10.12 LEF T UPPER QUADRANT PAIN 02/14/2018 Ot Z88.8 KENNY RGY STATUS TO [facility] DRUG/MEDS/BIOL SUB 02/19/2018 Sita Morin 789.07 ABDOMINAL PAIN, GENERALIZED 02/19/2018 Sita Morin R10.84 GENERALIZED ABDOMINAL PAIN 02/21/2018 Ot Z01.818 EN COUNTER FOR OTHER PREPROCEDURAL EXAMIN 02/22/2018 Ot Z01.818 EN COUNTER FOR OTHER PREPROCEDURAL EXAMIN 02/26/2018 BEAU VELSÁQUEZ DO Ot F17.210 NICOTINE DEPENDENCE, CIGARETTES, UNCOMPL 02/26/2018 BEAU VELÁSQUEZ DO Ot K21. 0 GASTRO-ESOPHAGEAL REFLUX DISEASE WITH ES 02/26/2018 BEAU VELÁSQUEZ DO Ot K44. 9 DIAPHRAGMATIC HERNIA WITHOUT OBSTRUCTION 02/27/2018 Ot Z01.818 EN COUNTER FOR OTHER PREPROCEDURAL EXAMIN 02/28/2018 BEAU VELÁSQUEZ DO Ot F17.210 NICOTINE DEPENDENCE, CIGARETTES, UNCOMPL 02/28/2018 BEAU VELÁSQUEZ DO Ot K21. 0 GASTRO-ESOPHAGEAL REFLUX DISEASE WITH ES 02/28/2018 BEAU VELÁSQUEZ DO Ot K44. 9 DIAPHRAGMATIC HERNIA WITHOUT OBSTRUCTION 03/04/2018 BEAU VELÁSQUEZ DO Ot F17.210 NICOTINE DEPENDENCE, CIGARETTES, UNCOMPL 03/04/2018 BEAU VELÁSQUEZ DO Ot K21. 0 GASTRO-ESOPHAGEAL REFLUX DISEASE WITH ES 03/04/2018 BEAU VELÁSQUEZ DO Ot K44. 9 DIAPHRAGMATIC HERNIA WITHOUT OBSTRUCTION 03/05/2018 Ot R10.13 EPI GASTRIC PAIN 03/05/2018 BEAU VELÁSQUEZ DO Ot F17.210 NICOTINE DEPENDENCE, CIGARETTES, UNCOMPL 03/05/2018 BEAU VELÁSQUEZ DO Ot K21. 0 GASTRO-ESOPHAGEAL REFLUX DISEASE WITH ES 03/05/2018 BEAU VELÁSQUEZ DO Ot K44. 9 DIAPHRAGMATIC HERNIA WITHOUT OBSTRUCTION 05/17/2018 Ot R10.13 EPI GASTRIC PAIN 05/17/2018 Ot R10.13 EPI GASTRIC PAIN 05/18/2018 Ot K21.9 YISSEL RO-ESOPHAGEAL REFLUX DISEASE WITHOUT 05/18/2018 Ot K92.0 COBY TEMESIS 05/18/2018 Ot R10.11 RIG HT UPPER QUADRANT PAIN 05/18/2018 Ot R10.12 LEF T UPPER QUADRANT PAIN 05/18/2018 Ot Z88.8 KENNY RGY STATUS TO [facility] DRUG/MEDS/BIOL SUB 09/21/2018 Ot R10.13 EPI GASTRIC PAIN 09/24/2018 RAMÓN GONZALES MD Ot F32.9 MAJOR DEPRESSIVE DISORDER, SINGLE EPISOD 09/24/2018 RAMÓN GONZALES MD, Ot S91.332 A PUNCTURE WOUND WITHOUT FOREIGN BODY, LEF 09/24/2018 RAMÓN GONZALES MD Ot W45.0XX A NAIL ENTERING THROUGH SKIN, INITIAL ENCO 09/24/2018 RAMÓN GONZALES MD, Ot Y92.328 [facility] ATHLETIC FIELD [facility] 09/24/2018 RAMÓN GONZALES MD, Ot Y93.01 ACTIVITY, WALKING, MARCHING AND HIKING 09/24/2018 RAMÓN GONZALES MD, Ot Z87.891 PERSONAL HISTORY OF NICOTINE DEPENDENCE 09/24/2018 RAMÓN GONZALES MD, Ot Z88.5 ALLERGY STATUS TO NARCOTIC AGENT STATUS Procedures There is no data. Results Test [...] - 02/09/18 15:45 LIPASE 127 U/L 73-393 Comprehensive Metabolic Panel - 02/11/18 21:29 Albumin 5.0 g/dL 3.6-5.1 ALP 109 U/L 35-130 ALT 31 U/L 6-45 Anion Gap 19 6-14 AST 26 U/L 2-40 BUN 10 mg/dL 5-25 Calcium 10.3 mg/dL 8.3-10.4 Chloride 105 mmol/L 95-114 CO2 22 mEq/L 22-33 Creat 0.85 mg/dL 0.50-1.50 eGFR 85 mL/min/1.73m2 >59 Globulin 3.8 g/dL 2.3-3.5 Glucose 103 mg/dL 70-110 Osmo 294 280-295 Potassium 3.3 mmol/L 3.5-5.3 Sodium 143 mmol/L 134-148 TBil 0.4 mg/dL 0.2-1.2 TP 8.8 g/dL 6.0-8.3 Complete blood count (CBC) with automate d white blood cell (WBC) differential - 02/12/18 11:16 Blood leukocytes automated count (number/volume) 6.1 10*3/uL 4.3-11.0 Blood erythrocytes automated count (number/volume) 4.70 10*6/uL 4.35-5.85 Venous blood hemoglobin measurement (mass/volume) 12.6 g/dL 11.5-16.0 Blood hematocrit (volume fraction) 39 % 35-52 Automated erythrocyte mean corpuscular volume 83 [ foz_us] 80-99 Automated erythrocyte mean corpuscular h emoglobin (mass per erythrocyte) 27 pg 25-34 Automated erythrocyte mean corpuscular h emoglobin concentration measurement (mass/volume) 32 g/dL 32-36 Automated erythrocyte distribution width ratio 14. 7 % 10.0- 14.5 Automated blood platelet count (count/volume) 274 10*3/uL 130-400 Automated blood platelet mean volume measurement 10.0 [foz_us] 7.4-10.4 Automated blood neutrophils/100 leukocytes 43 % 42-75 Automated blood lymphocytes/100 leukocytes 47 % 12-44 Blood monocytes/100 leukocytes 10 % 0-12 Automated blood eosinophils/100 leukocytes 1 % 0-10 Automated blood basophils/100 leukocytes 0 % 0-10 Blood neutrophils automated count (number/volume) 2.6 10*3 1.8-7.8 Blood lymphocytes automated count (number/volume) 2.8 10*3 1.0-4.0 Blood monocytes automated count (number/volume) 0. 6 10*3 0.0-1.0 Automated eosinophil count 0.0 10*3/uL 0 .0-0.3 Automated blood basophil count (count/volume) 0.0 10*3/uL 0.0-0.1 Serum or plasma choriogonadotropin (preg danyelle test) detection - 02/12/18 11:16 Serum or plasma choriogonadotropin ( test) de tection NEGATIVE NEGATIVE Comprehensive metabolic panel - 02/12/18 11:16 Serum or plasma sodium measurement (moles/volume) 141 mmol/L 135-145 Serum or plasma potassium measurement (moles/volume) 4.1 mmol/L 3.6-5.0 Serum or plasma chloride measurement (moles/volume) 108 mmol/L 98-107 Carbon dioxide 26 mmol/L 21-32 Serum or plasma anion gap determination (moles/volume) 7 mmol/L 5-14 Serum or plasma urea nitrogen measurement (mass/volume ) 9 mg/dL 7-18 Serum or plasma creatinine measurement (mass/volume) 0.74 mg/dL 0.60-1.30 Serum or plasma urea nitrogen/creatinine mass ratio 12 NRG Serum or plasma creatinine measurement w ith calculation of estimated glomerular filtration rate > NRG Serum or plasma glucose measurement (mass/volume) 90 mg/dL 70-105 Serum or plasma calcium measurement (mass/volume) 9.2 mg/dL 8.5-10.1 Serum or plasma total bilirubin measurement (mass/volu me) 0.7 mg/dL 0.1-1.0 Serum or plasma alkaline phosphatase armida surement (enzymatic activity/volume) 102 U/L 40-136 Serum or plasma aspartate aminotransfera se measurement (enzymatic activity/volume) 25 U/L 5-34 Serum or plasma alanine aminotransferase measurement (enzymatic activity/volume) 31 U/L 0-55 Serum or plasma protein measurement (mass/volume) 7.3 g/dL 6.4-8.2 Serum or plasma albumin measurement (mass/volume) 4.5 g/dL 3.2-4.5 Lipase - 02/12/18 11:16 Lipase 17 U/L 8-78 Lipase - 02/19/18 22:25 Lipase 23 U/L 7-59 Urinalysis - 02/19/18 22:40 Icotest Negative Negative Urine Crystals Amorphous material: moderate/HPF Urine Volume Urine Volume Sufficient (10mL) Urine-Appearance Slightly Cloudy Clear Urine-Bacteria 2+ Urine-Bilirubin 1+ Negative Urine-Blood 1+ Negative Urine-Color Yellow Colorless-Lt. [facility] ow Urine-Epithelial Cells 10-20/HPF Urine-Glucose Negative Negative Urine-Ketones Trace Negative Urine-Leukocytes Trace Negative Urine-Mucus 1+ Urine-Nitrite Negative Negative Urine-Other Urine Saved if Culture Need ed (48hrs from time of collection) Urine-pH 6.5 5-8.5 Urine-Protein Negative Negative Urine-RBC 0-3/HPF Urine-Specific [place] >=1.030 1.000-1 .030 Urine-WBC 2-5/HPF Urobilinogen 2.0 0.2-1.0 Complete blood count (CBC) with automate d white blood cell (WBC) differential - 01/16/20 19:55 Blood leukocytes automated count (number/volume) 8.4 10*3/uL 4.3-11.0 Blood erythrocytes automated count (number/volume) 5.19 10*6/uL 4.35-5.85 Venous blood hemoglobin measurement (mass/volume) 14.2 g/dL 11.5-16.0 Blood hematocrit (volume fraction) 43 % 35-52 Automated erythrocyte mean corpuscular volume 83 [ foz_us] 80-99 Automated erythrocyte mean corpuscular h emoglobin (mass per erythrocyte) 27 pg 25-34 Automated erythrocyte mean corpuscular h emoglobin concentration measurement (mass/volume) 33 g/dL 32-36 Automated erythrocyte distribution width ratio 13. 0 % 10.0- 14.5 Automated blood platelet count (count/volume) 354 10*3/uL 130-400 Automated blood platelet mean volume measurement 9.8 [foz_us] 7.4-10.4 Automated blood neutrophils/100 leukocytes 61 % 42-75 Automated blood lymphocytes/100 leukocytes 30 % 12-44 Blood monocytes/100 leukocytes 6 % 0-12 Automated blood eosinophils/100 leukocytes 2 % 0-10 Automated blood basophils/100 leukocytes 0 % 0-10 Blood neutrophils automated count (number/volume) 5.1 10*3 1.8-7.8 Blood lymphocytes automated count (number/volume) 2.5 10*3 1.0-4.0 Blood monocytes automated count (number/volume) 0. 5 10*3 0.0-1.0 Automated eosinophil count 0.2 10*3/uL 0 .0-0.3 Automated blood basophil count (count/volume) 0.0 10*3/uL 0.0-0.1 Comprehensive metabolic panel - 01/16/20 19:55 Serum or plasma sodium measurement (moles/volume) 142 mmol/L 135-145 Serum or plasma potassium measurement (moles/volume) 3.6 mmol/L 3.6-5.0 Serum or plasma chloride measurement (moles/volume) 103 mmol/L 98-107 Carbon dioxide 23 mmol/L 21-32 Serum or plasma anion gap determination (moles/volume) 16 mmol/L 5-14 Serum or plasma urea nitrogen measurement (mass/volume ) 9 mg/dL 7-18 Serum or plasma creatinine measurement (mass/volume) 0.74 mg/dL 0.60-1.30 Serum or plasma urea nitrogen/creatinine mass ratio 12 NRG Serum or plasma creatinine measurement w ith calculation of estimated glomerular filtration rate > NRG Serum or plasma glucose measurement (mass/volume) 117 mg/dL 70-105 Serum or plasma calcium measurement (mass/volume) 9.5 mg/dL 8.5-10.1 Serum or plasma total bilirubin measurement (mass/volu me) 0.3 mg/dL 0.1-1.0 Serum or plasma alkaline phosphatase armida surement (enzymatic activity/volume) 118 U/L 40-136 Serum or plasma aspartate aminotransfera se measurement (enzymatic activity/volume) 28 U/L 5-34 Serum or plasma alanine aminotransferase measurement (enzymatic activity/volume) 35 U/L 0-55 Serum or plasma protein measurement (mass/volume) 8.2 g/dL 6.4-8.2 Serum or plasma albumin measurement (mass/volume) 5.0 g/dL 3.2-4.5 Serum or plasma salicylates measurement (mass/volume) - 01/16/20 19:55 Serum or plasma salicylates measurement (mass/volume) 0.7 mg/dL 5.0-20.0 Serum or plasma acetaminophen measuremen t (mass/volume) - 01/16/20 19:55 Serum or plasma acetaminophen measurement (mass/volume ) < ug/mL 10-30 Serum or plasma ethanol measurement (mas s/volume) - 01/16/20 19:55 Serum or plasma ethanol measurement (mass/volume) 100 mg/dL <10 Complete urinalysis with reflex to cultu re - 01/16/20 20:00 Urine color determination YELLOW NRG Urine clarity determination CLEAR NR G Urine pH measurement by test strip 5.5 5-9 Specific gravity of urine by test strip 1.010 1.016-1.022 Urine protein assay by test strip, semi-quantitative NEGATIVE NEGATIVE Urine glucose detection by automated test strip NE GATIVE NEGATIVE Erythrocytes detection in urine sediment by light micr oscopy 1+ NEGATIVE Urine ketones detection by automated test strip NE GATIVE NEGATIVE Urine nitrite detection by test strip NEGATIVE NEGATIVE Urine total bilirubin detection by test strip NEGA TIVE NEGATIVE Urine urobilinogen measurement by automated test strip (mass/volume) 0.2 mg/dL < = 1.0 Urine leukocyte esterase detection by dipstick TRA CE NEGATIVE Automated urine sediment erythrocyte cou nt by microscopy (number/high power field) NONE NRG Automated urine sediment leukocyte count by microscopy (number/high power field) [HPF] NRG Bacteria detection in urine sediment by light microsco py FEW NRG Squamous epithelial cells detection in u rine sediment by light microscopy 10-25 NRG Crystals detection in urine sediment by light microsco py NONE NRG Casts detection in urine sediment by light microscopy PRESENT NRG Mucus detection in urine sediment by light microscopy NEGATIVE NRG Complete urinalysis with reflex to culture YES NRG Hyaline casts detection in urine sediment by light zara roscopy 2-5 NRG Urine drug screening test - 01/16/20 20: 00 Urine phencyclidine detection by screening method NEGATIVE NEGATIVE Urine benzodiazepines detection by screening method NEGATIVE NEGATIVE Urine cocaine detection NEGATIVE NEGATI VE Urine amphetamines detection by screening method N EGATIVE NEGATIVE Urine methamphetamine detection by screening method NEGATIVE NEGATIVE Urine cannabinoids detection by screening method N EGATIVE NEGATIVE Urine opiates detection by screening method NEGATI VE NEGATIVE Urine barbiturates detection NEGATIVE N EGATIVE Screening urine tricyclic antidepressants detection NEGATIVE NEGATIVE Urine methadone detection by screening method NEGA TIVE NEGATIVE Urine oxycodone detection NEGATIVE NEGA TIVE Urine propoxyphene detection NEGATIVE N EGATIVE Encounters ACCT No. Visit Date/Time Discharge Status Pt. Type Provider Facility Loc./Unit Complaint [id number] 09/18/2012 14:25:43 RECURRING [id number] 02/09/2018 15:04:00 02/09/2018 17:05 :00 DIS Emergency [facility], [facility] [place] [id number] 01/08/2020 11:40:00 01/08/2020 23:59:5 9 [facility] Outpatient [facility] [id number] 02/19/2018 22:03:00 02/19/2018 23:43: 00 DIS Outpatient Sita Morin [facility] [id number] 02/11/2018 21:19:00 02/11/2018 23:25: 00 DIS Outpatient ALBERTINA AWAN [id number] 02/11/2018 22:04:39 Document Registration [id number] 01/16/2020 19:49:00 020 20:44:00 DIS Emergency THAD GARCIA DO [facility] ER FS VOMITING,BLOOD IN VOMIT ,PASSING OUT [id number] 09/21/2018 16:20:00 019 17:49:00 DIS Outpatient JANET LARA, RAMÓN marquez [facility] ER FS FOOT INJURY [id number] 02/26/2018 11:02:00 018 12:50:00 DIS Outpatient BEAU VELÁSQUEZ DO [facility] ENDO N/V, RUQ ABD PAIN [id number] 03/01/2018 08:12:00 Document Registration [id number] 02/21/2018 05:36:00 Document Registration [id number] 02/14/2018 16:37:00 Document Registration [id number] 02/12/2018 11:35:00 Document Registration
== END 2020-01-16 20:44 | disposition home or self-care (01) ==
LOC: EDUNIT# 19:47 → ER FS 19:49
DX: F10.129 Alcohol abuse with intoxication, unspecified (principal); Z88.5 Allergy status to narcotic agent; Y90.5 Blood alcohol level of 100-119 mg/100 ml
CPT/HCPCS: 36415; 80053; 80306; 81000; 85025; 87088; 99284; G0480 ×3; 80320; 80329

== ENCOUNTER 2020-06-15 07:31 | Emergency (ER) | payer SELFPAY ==
[~2020-06-15] VITALS: Ht 165.1 cm; Wt 77.2 kg
--- NOTE | 2020-06-15 07:43 | ED Abdominal Pain ---
General Chief Complaint: Abdominal/GI Problems Stated Complaint: ABD PAIN History of Present Illness Date Seen by Provider: Jun 15, 2020 Time Seen by Provider: 07:43 Initial Comments 20-year-old female presents with pain in the right lower quadrant. She reports the pain started around 6:30 this morning. Patient states she "feels like something exploded in her stomach" that she vomited 4 times around 7. Patient has pain in the right lower quadrant kind of mid lower quadrant/periumbilical. Doesn't report any fevers, chills, urinary symptoms or diarrhea. Allergies and Home Medications Allergies Coded Allergies: oxycodone (Verified Allergy, Unknown, 02/12/18) Home Medications Cephalexin 500 Mg Tablet, 500 MG PO QID Prescribed by: RAMÓN GONZALES on 09/21/18 1732 Ibuprofen 800 Mg Tablet, 800 MG PO Q8H PRN for PAIN Prescribed by: RAMÓN GONZALES on 09/21/18 1733 Pantoprazole Sodium 40 Mg Tablet.dr, 40 MG PO DAILY Prescribed by: BEAU VELÁSQUEZ on 02/26/18 1203 Patient Home Medication List Home Medication List Reviewed: Yes Review of Systems Review of Systems Constitutional: No chills, No fever Respiratory: Denies Cough, Denies Shortness of Air Cardiovascular: Denies Chest Pain, Denies Irregular Heart Rate Gastrointestinal: Abdominal Pain; Denies Constipated, Denies Diarrhea; Nausea, Vomiting Genitourinary: No Symptoms Reported Musculoskeletal: no symptoms reported Skin: no symptoms reported Psychiatric/Neurological: No Symptoms Reported Endocrine: No Symptoms Reported Hematologic/Lymphatic: No Symptoms Reported Past Bnpllbw-Aqinpq-Lixfun Hx Past Med/Social Hx: Reviewed Nursing Past Med/Soc Hx Patient Social History Type Used: Cigarettes Recent Foreign Travel: No Contact w/Someone Who Travel: No Recent Hopitalizations: No Immunizations Up To Date Tetanus Booster (TDap): Less than 5yrs Seasonal Allergies Seasonal Allergies: No Past Medical History Orthopedic Respiratory: No Cardiac: No Neurological: No Reproductive Disorders: No Genitourinary: No Gastrointestinal: No Musculoskeletal: No Endocrine: No HEENT: No Cancer: No Psychosocial: No Depression Integumentary: No Blood Disorders: No Physical Exam Vital Signs Vital Signs - First Documented 06/15/20 07:35 Temp 36.3 Pulse 68 Resp 18 B/P (MAP) 111/69 (83) Pulse Ox 98 O2 Delivery Room Air Capillary Refill : Height/Weight/BMI Height: 5'7.00" Weight: 180lbs. 0.0oz. 81.716117aj; 32.00 BMI Method:Estimated General Appearance: no apparent distress Neck: full range of motion, supple Respiratory: normal breath sounds, no respiratory distress Cardiovascular: normal peripheral pulses, regular rate, rhythm Gastrointestinal: soft; No distended, No guarding, No rebound; tenderness (mild tenderness right lower quadrant) Extremities: normal range of motion, non-tender, normal inspection Back: no CVA tenderness Neurologic/Psychiatric: alert, normal mood/affect, oriented x 3 Skin: normal color, warm/dry Progress/Results/Core Measures Results/Orders Lab Results Laboratory Tests Test 06/15/20 07:52 Range/Units White Blood Count 6.2 4.3-11.0 10^3/uL Red Blood Count 4.70 3.80-5.11 10^6/uL Hemoglobin 12.7 11.5-16.0 g/dL Hematocrit 40 35-52 % Mean Corpuscular Volume 86 80-99 fL Mean Corpuscular Hemoglobin 27 25-34 pg Mean Corpuscular Hemoglobin Concent 31 L 32-36 g/dL Red Cell Distribution Width 13.2 10.0-14.5 % Platelet Count 288 130-400 10^3/uL Mean Platelet Volume 9.7 9.0-12.2 fL Immature Granulocyte % (Auto) 0 % Neutrophils (%) (Auto) 44 42-75 % Lymphocytes (%) (Auto) 39 12-44 % Monocytes (%) (Auto) 7 0-12 % Eosinophils (%) (Auto) 10 0-10 % Basophils (%) (Auto) 1 0-10 % Neutrophils # (Auto) 2.8 1.8-7.8 10^3/uL Lymphocytes # (Auto) 2.4 1.0-4.0 10^3/uL Monocytes # (Auto) 0.4 0.0-1.0 10^3/uL Eosinophils # (Auto) 0.6 H 0.0-0.3 10^3/uL Basophils # (Auto) 0.0 0.0-0.1 10^3/uL Immature Granulocyte # (Auto) 0.0 0.0-0.1 10^3/uL Urine Color YELLOW Urine Clarity CLEAR Urine pH 6.0 5-9 Urine Specific [place] >=1.030 1.016-1.022 Urine Protein NEGATIVE NEGATIVE Urine Glucose (UA) NEGATIVE NEGATIVE Urine Ketones NEGATIVE NEGATIVE Urine Nitrite NEGATIVE NEGATIVE Urine Bilirubin NEGATIVE NEGATIVE Urine Urobilinogen 0.2 < = 1.0 MG/DL Urine Leukocyte Esterase NEGATIVE NEGATIVE Urine RBC (Auto) 2+ H NEGATIVE Urine RBC 10-25 H /HPF Urine WBC NONE /HPF Urine Squamous Epithelial Cells 2-5 /HPF Urine Crystals NONE /LPF Urine Bacteria NEGATIVE /HPF Urine Casts NONE /LPF Urine Mucus SMALL H /LPF Urine Culture Indicated NO Urine Test NEGATIVE NEGATIVE Sodium Level 140 135-145 MMOL/L Potassium Level 3.7 3.6-5.0 MMOL/L Chloride Level 106 98-107 MMOL/L Carbon Dioxide Level 25 21-32 MMOL/L Anion Gap 9 5-14 MMOL/L Blood Urea Nitrogen 11 7-18 MG/DL Creatinine 0.76 0.60-1.30 MG/DL Estimat Glomerular Filtration Rate > 60 BUN/Creatinine Ratio 14 Glucose Level 101 70-105 MG/DL Calcium Level 8.6 8.5-10.1 MG/DL Corrected Calcium 8.4 L 8.5-10.1 MG/DL Total Bilirubin 0.4 0.1-1.0 MG/DL Aspartate Amino Transf (AST/SGOT) 17 5-34 U/L Alanine Aminotransferase (ALT/SGPT) 17 0-55 U/L Alkaline Phosphatase 97 40-136 U/L C-Reactive Protein High Sensitivity 0.47 0.00-0.50 MG/DL Total Protein 7.5 6.4-8.2 GM/DL Albumin 4.2 3.2-4.5 GM/DL My Orders Orders - GARCIA,THAD L DO Cbc With Automated Diff (06/15/20 07:46) Comprehensive Metabolic Panel (06/15/20 07:46) Hs C Reactive Protein (06/15/20 07:46) Hcg,Qualitative Urine (06/15/20 07:46) Ua Culture If Indicated (06/15/20 07:46) Ct Abd/Pelv W (Appendicitis) (06/15/20 07:46) Iohexol Injection (Omnipaque 350 Mg/Ml 1 (06/15/20 08:00) Received Contrast (Hold Metformin- Contr (06/15/20 08:00) Sodium Chloride Flush (Catheter Flush Sy (06/15/20 08:00) Ns (Ivpb) (Sodium Chloride 0.9% Ivpb Bag (06/15/20 08:00) Medications Given in ED Current Medications Medications Dose Ordered Sig/Christiano Route Start Time Stop Time Status Last Admin Dose Admin Iohexol 100 ml ONCE ONCE IV 06/15/20 08:00 06/15/20 08:01 DC 06/15/20 08:29 97 ML Sodium Chloride 10 ml NEEDED PRN IV 06/15/20 08:00 06/15/20 08:29 10 ML Sodium Chloride 100 ml ONCE ONCE IV 06/15/20 08:00 06/15/20 08:01 DC 06/15/20 08:29 80 ML Vital Signs/I&O 06/15/20 07:35 Temp 36.3 Pulse 68 Resp 18 B/P (MAP) 111/69 (83) Pulse Ox 98 O2 Delivery Room Air Progress Progress Note : Time: 10:[address] shows a dominant follicle cyst on the right adnexa otherwise normal CT abdomen and pelvis. Labs within normal range. Pain is likely from the cyst. Patient stable will be discharged home Departure Impression Primary Impression: Right lower quadrant abdominal pain Additional Impression: Ovarian cyst Qualified Codes: N83.201 - Unspecified ovarian cyst, right side Disposition: 01 HOME, SELF-CARE Condition: Stable Departure-Patient Inst. Referrals: NO,LOCAL PHYSICIAN (PCP/Family) Primary Care Physician Patient Instructions: Ovarian Cyst ED Add. Discharge Instructions: Follow-up with your primary care provider if symptoms are not improving. All discharge instructions reviewed with patient and/or family. Voiced understanding. THAD GARCIA DO Jun 15, 2020 07:43
--- NOTE | 2020-06-15 07:59 | NUR ---
UPDATED TO DAD AT [phone]
[2020-06-15] MEDS ORDERED: CATHETER FLUSH 10 ML SYR IV PRN (08:00)
[2020-06-15] MEDS ORDERED: NS 100 ML (IVPB) BAG IV ONE (08:00)
[2020-06-15] MEDS ORDERED: HOLD METFORMIN - RECEIVED CONTRAST 20 ML VIAL IV SCH (08:00)
[2020-06-15] MEDS ORDERED: IOHEXOL 350 MG/ML 100 ML (OMNIPAQUE 350) VIAL IV ONE (08:00)
[2020-06-15 08:03] LABS: BASOPHILS % (AUTO) 1 % (0-10); EOSINOPHILS # (AUTO) 0.6 10^3/uL (0.0-0.3); EOSINOPHILS % (AUTO) 10 % (0-10); HEMATOCRIT 40 % (35-52); HEMOGLOBIN 12.7 g/dL (11.5-16.0); LYMPHOCYTES # (AUTO) 2.4 10^3/uL (1.0-4.0); LYMPHOCYTES % (AUTO) 39 % (12-44); MEAN CORPUSCULAR HEMOGLOBIN 27 pg (25-34); MEAN CORPUSCULAR HGB CONC 31 g/dL (32-36); MEAN CORPUSCULAR VOLUME 86 fL (80-99); MEAN PLATELET VOLUME 9.7 fL (9.0-12.2); MONOCYTES # (AUTO) 0.4 10^3/uL (0.0-1.0); MONOCYTES % (AUTO) 7 % (0-12); NEUTROPHILS # (AUTO) 2.8 10^3/uL (1.8-7.8); NEUTROPHILS % (AUTO) 44 % (42-75); PLATELET COUNT 288 10^3/uL (130-400); WHITE BLOOD COUNT 6.2 10^3/uL (4.3-11.0)
[2020-06-15 08:12] LABS: ALBUMIN 4.2 GM/DL (3.2-4.5); CHLORIDE 106 MMOL/L (98-107); POTASSIUM 3.7 MMOL/L (3.6-5.0); SODIUM 140 MMOL/L (135-145)
[2020-06-15 08:14] LABS: CALCIUM 8.6 MG/DL (8.5-10.1)
[2020-06-15 08:15] LABS: GLUCOSE 101 MG/DL (70-105); TOTAL PROTEIN 7.5 GM/DL (6.4-8.2)
[2020-06-15 08:16] LABS: CARBON DIOXIDE 25 MMOL/L (21-32)
[2020-06-15 08:17] LABS: BILIRUBIN,TOTAL 0.4 MG/DL (0.1-1.0)
[2020-06-15 08:18] LABS: ALKALINE PHOSPHATASE 97 U/L (40-136); CREATININE SERUM 0.76 MG/DL (0.60-1.30); GFR ESTIMATED > 60
[2020-06-15 08:20] LABS: BUN/CREATININE RATIO 14
[2020-06-15 08:21] LABS: ALANINE AMINOTRANSFERASE 17 U/L (0-55)
[2020-06-15 08:22] LABS: BILIRUBIN,URINE NEGATIVE (NEGATIVE); CLARITY,URINE CLEAR; COLOR,URINE YELLOW; GLUCOSE, URINE (UA) NEGATIVE (NEGATIVE); KETONES,URINE NEGATIVE (NEGATIVE); LEUKOCYTE ESTERASE ,URINE NEGATIVE (NEGATIVE); NITRITE,URINE NEGATIVE (NEGATIVE); PROTEIN,URINE NEGATIVE (NEGATIVE)
[2020-06-15 08:25] LABS: BACTERIA,URINE NEGATIVE /HPF
--- NOTE | 2020-06-15 09:31 | NUR ---
TO ROOM TEXTING ON PHONE NO NEW C/O
--- NOTE | 2020-06-15 11:16 | NUR ---
CON'T TO WAIT FOR CT REPORT
--- NOTE | 2020-06-15 11:17 | NUR ---
TRIED TO UPDATE DAD NO ANSWER.
[2020-06-15 11:24] VITALS: BP 117/85
== END 2020-06-15 11:23 | disposition home or self-care (01) ==
LOC: EDUNIT# 07:31 → ER 07:33
DX: R10.31 Right lower quadrant pain (principal); N83.201 Unspecified ovarian cyst, right side; Z88.5 Allergy status to narcotic agent
CPT/HCPCS: 36415; 74177; 80053; 81000; 84703; 85025; 86141

== ENCOUNTER 2020-09-05 19:21 | Emergency (ER) | payer SELFPAY ==
[~2020-09-05] VITALS: Ht 152.4 cm; Wt 80.0 kg
[2020-09-05] MEDS ORDERED: ONDANSETRON 4 MG/2 ML (SDV) Z0FRAN IVP ONE (20:30)
[2020-09-05] MEDS ORDERED: SCOPOLAMINE 1.5 MG (TRANSDERM-SCOP) PATCH TD ONE (20:30)
[2020-09-05] MEDS ORDERED: LACTATED RINGERS 1,000 ML IV ONE (20:30)
[2020-09-05 20:39] LABS: BASOPHILS % (AUTO) 0 % (0-10); EOSINOPHILS # (AUTO) 1.1 10^3/uL (0.0-0.3); EOSINOPHILS % (AUTO) 11 % (0-10); HEMATOCRIT 40 % (35-52); HEMOGLOBIN 12.8 g/dL (11.5-16.0); LYMPHOCYTES # (AUTO) 3.5 10^3/uL (1.0-4.0); LYMPHOCYTES % (AUTO) 37 % (12-44); MEAN CORPUSCULAR HEMOGLOBIN 27 pg (25-34); MEAN CORPUSCULAR HGB CONC 32 g/dL (32-36); MEAN CORPUSCULAR VOLUME 86 fL (80-99); MEAN PLATELET VOLUME 9.9 fL (9.0-12.2); MONOCYTES # (AUTO) 0.7 10^3/uL (0.0-1.0); MONOCYTES % (AUTO) 7 % (0-12); NEUTROPHILS # (AUTO) 4.2 10^3/uL (1.8-7.8); NEUTROPHILS % (AUTO) 44 % (42-75); PLATELET COUNT 327 10^3/uL (130-400); WHITE BLOOD COUNT 9.6 10^3/uL (4.3-11.0)
[2020-09-05 20:51] LABS: ALBUMIN 4.5 GM/DL (3.2-4.5); CHLORIDE 105 MMOL/L (98-107); SODIUM 140 MMOL/L (135-145)
[2020-09-05 20:52] LABS: CALCIUM 9.2 MG/DL (8.5-10.1)
[2020-09-05 20:53] LABS: GLUCOSE 105 MG/DL (70-105); TOTAL PROTEIN 8.2 GM/DL (6.4-8.2)
[2020-09-05 20:54] LABS: CARBON DIOXIDE 26 MMOL/L (21-32)
[2020-09-05 20:55] LABS: BILIRUBIN,TOTAL 0.2 MG/DL (0.1-1.0)
[2020-09-05 20:56] LABS: ALKALINE PHOSPHATASE 101 U/L (40-136)
[2020-09-05 20:57] LABS: CREATININE SERUM 0.75 MG/DL (0.60-1.30); GFR ESTIMATED > 60
[2020-09-05 20:58] LABS: BUN/CREATININE RATIO 15
[2020-09-05 21:00] LABS: ALANINE AMINOTRANSFERASE 21 U/L (0-55)
[2020-09-05 21:21] LABS: BILIRUBIN,URINE NEGATIVE (NEGATIVE); CLARITY,URINE SL CLOUDY; COLOR,URINE YELLOW; GLUCOSE, URINE (UA) NEGATIVE (NEGATIVE); KETONES,URINE NEGATIVE (NEGATIVE); LEUKOCYTE ESTERASE ,URINE NEGATIVE (NEGATIVE); NITRITE,URINE NEGATIVE (NEGATIVE); PROTEIN,URINE NEGATIVE (NEGATIVE)
[2020-09-05 21:38] LABS: AMPHETAMINE SCREEN, URINE NEGATIVE (NEGATIVE); BARBITURATE SCREEN URINE NEGATIVE (NEGATIVE); BENZODIAZEPINES SCREEN URINE NEGATIVE (NEGATIVE); CANNABINOID SCREEN, URINE NEGATIVE (NEGATIVE); COCAINE SCREEN URINE NEGATIVE (NEGATIVE); METHADONE STAT NEGATIVE (NEGATIVE); METHAMPHETAMINE SCREEN URINE S NEGATIVE (NEGATIVE); OPIATE SCREEN URINE NEGATIVE (NEGATIVE); OXYCODONE STAT NEGATIVE (NEGATIVE); PROPOXYPHENE STAT NEGATIVE (NEGATIVE); TRICYCLIC ANTIDEPRESSANTS SCRE NEGATIVE (NEGATIVE)
[2020-09-05 21:39] LABS: BACTERIA,URINE TRACE /HPF; CALCIUM OXALATE CRYSTALS,UR LARGE /LPF; RBC,URINE RARE /HPF
--- NOTE | 2020-09-05 22:00 | Diagnostic Imaging Report ---
PROCEDURE: CT head wo r/o stroke. TECHNIQUE: Multiple contiguous axial images were obtained through the brain without the use of intravenous contrast. Auto Exposure Controls were utilized during the CT exam to meet ALARA standards for radiation dose reduction. INDICATION: Headache, neurological deficit COMPARISON: None FINDINGS: The ventricles and cortical sulci are age-appropriate. There is no midline shift or mass effect. No acute intracranial hemorrhage is seen. There is no CT evidence of acute territorial ischemia. The calvarium appears intact. Visualized paranasal sinuses are clear. IMPRESSION: 1. No acute intracranial hemorrhage. No CT evidence of acute territorial ischemia. Findings discussed with MILTON KIRK DO by Dr. Myers, on 09/05/2020 9:58 PM. Dictated by: Dictated on workstation # [id number]
[2020-09-05] MEDS ORDERED: SCOP1PAT11 TD ×2 (22:03→22:35)
[2020-09-05] MEDS ORDERED: ONDA4TAB11 PO ×2 (22:03→22:35)
[2020-09-05] MEDS ORDERED: MECL-149 PO ×2 (22:03→22:35)
--- NOTE | 2020-09-05 22:04 | ED General ---
General Chief Complaint: Dizziness/Syncope Stated Complaint: HEADACHE/VISION ISSUES/ELEV HR Source of Information: Patient History of Present Illness Date Seen by Provider: Sep 05, 2020 Time Seen by Provider: 20:29 Initial Comments PT ARRIVES VIA POV FROM HOME C/O DIZZINESS SINCE LAST NIGHT--BEGAN WHILE LAYING IN BED SYMPTOMS WORSE WITH LAYING DOWN NO PROBLEMS WALKING C/O NAUSEA AND VOMITED X 5-6 TIMES NO DIARRHEA OR ABDOMINAL PAIN PT HAS BEEN ABLE TO EAT AND DRINK TODAY VOIDING NORMALLY AND NO URINARY SYMPTOMS C/O SLIGHT BLURRY VISION WITH THE DIZZINESS, BUT NOT NOW C/O FRONTAL HEADACHE OFF AND ON NO PARESTHESIAS OR MOTOR DEFICITS. NO NECK PAIN NO EAR PAIN OR CHANGES IN HEARING NO URI SYMPTOMS --STATES SHE HAD A SINUS INFECTION APPROXIMATELY 1 1/2 MONTHS AGO, BUT WENT AWAY WITH ANTIBIOTICS/ AMOXIL NO FEVER LMP 07/18/20. NORMAL. NO CONTROL [place] [facility] [place]ies and Home Medications Allergies Coded Allergies: oxycodone (Verified Allergy, Unknown, 02/12/18) Home Medications Cephalexin 500 Mg Tablet, 500 MG PO QID Prescribed by: RAMÓN GONZALES on 09/21/18 1732 Ibuprofen 800 Mg Tablet, 800 MG PO Q8H PRN for PAIN Prescribed by: RAMÓN GONZALES on 09/21/18 1733 Meclizine HCl 25 Mg Tablet, 50 MG PO Q6 PRN for DIZZINESS Prescribed by: MILTON KIRK on 09/05/202234 Ondansetron 4 Mg Tab.rapdis, 4 MG PO Q4H Prescribed by: MILTON KIRK on 09/05/20 223 Pantoprazole Sodium 40 Mg Tablet.dr, 40 MG PO DAILY Prescribed by: BEAU VELÁSQUEZ on 02/26/18 1203 Scopolamine 1 Each Patch.td72, 1 EACH TD Q72H Prescribed by: MILTON IKRK on 09/05/20 223 Patient Home Medication List Home Medication List Reviewed: Yes Review of Systems Review of Systems Constitutional: see HPI; No chills, No diaphoresis; dizziness; No fever, No malaise, No weakness EENTM: see HPI, blurred vision; No eye pain, No nose congestion, No throat pain Respiratory: no symptoms reported; No cough, No short of breath Cardiovascular: no symptoms reported Gastrointestinal: see HPI; No abdominal pain, No diarrhea, No loss of appetite; nausea, vomiting Genitourinary: no symptoms reported; No decreased output Musculoskeletal: no symptoms reported; No back pain, No neck pain Skin: no symptoms reported; No rash Psychiatric/Neurological: See HPI, Headache; Denies Numbness, Denies Pares thesia, Denies Seizure, Denies Tingling, Denies Tremors Hematologic/Lymphatic: No Symptoms Reported Immunological/Allergic: no symptoms reported Past Tswbect-Xemgpt-Cfthdl Hx Past Med/Social Hx: Reviewed and Corrections made Patient Social History Alcohol Use: Past History Drug of Choice: COCAINE Smoking Status: Current Everyday Smoker Type Used: Cigarettes, Smokeless Tobacco Recent Hopitalizations: No Immunizations Up To Date Tetanus Booster (TDap): Less than 5yrs Seasonal Allergies Seasonal Allergies: No Past Medical History Surgeries: Yes (LEFT HIP SURGERY) Orthopedic Respiratory: No Cardiac: No Neurological: No Reproductive Disorders: No Genitourinary: No Gastrointestinal: No Musculoskeletal: Yes (LEFT HIP SURGERY) Endocrine: No HEENT: No Cancer: No Psychosocial: Yes (DRUG AND ALCOHOL USE/ABUSE) Depression Integumentary: No Blood Disorders: No Family Medical History SOCIAL HISTORY: -ETOH--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 0.0oz. 81.219854ha; 28.00 BMI Method:Estimated General Appearance: No Apparent Distress, WD/WN, Other (REEKS OF CIGARETTES; WALKS UPRIGHT AND MOVES WITHOUT DIFFICULTY. DOES NOT APPEAR ILL OR TO BE IN ANY DISCOMFORT OR DISTRESS. ) HEENT: PERRL/EOMI, TMs Normal, Normal ENT Inspection, Pharynx Normal, Other (NO NYSTAGMUS) Neck: Full Range of Motion, Normal Inspection, Non Tender, Supple Respiratory: Normal Breath Sounds, No Accessory Muscle Use, No Respiratory Distress Cardiovascular: Regular Rate, Rhythm, No Edema, No JVD, No Murmur, Normal Peripheral Pulses Gastrointestinal: Normal Bowel Sounds, Non Tender, Soft Back: Normal Inspection Extremity: Normal Inspection, No Pedal Edema Neurologic/Psychiatric: Alert, Oriented x3, No Motor/Sensory Deficits, Normal Mood/Affect, operater II-XII Norm as Tested; No Abnormal Cerebellar Tests Skin: Normal Color, Warm/Dry Progress/Results/Core Measures Suspected Sepsis SIRS Temperature: Pulse: Respiratory Rate: Laboratory Tests 09/05/20 20:30: White Blood Count 9.6 Blood Pressure / Mean: Laboratory Tests 09/05/20 20:30: Creatinine 0.75, Platelet Count 327, Total Bilirubin 0.2 Results/Orders Lab Results Laboratory Tests Test 09/05/20 20:30 09/05/20 20:55 Range/Units White Blood Count 9.6 4.3-11.0 10^3/uL Red Blood Count 4.67 3.80-5.11 10^6/uL Hemoglobin 12.8 11.5-16.0 g/dL Hematocrit 40 35-52 % Mean Corpuscular Volume 86 80-99 fL Mean Corpuscular Hemoglobin 27 25-34 pg Mean Corpuscular Hemoglobin Concent 32 32-36 g/dL Red Cell Distribution Width 12.8 10.0-14.5 % Platelet Count 327 130-400 10^3/uL Mean Platelet Volume 9.9 9.0-12.2 fL Immature Granulocyte % (Auto) 0 % Neutrophils (%) (Auto) 44 42-75 % Lymphocytes (%) (Auto) 37 12-44 % Monocytes (%) (Auto) 7 0-12 % Eosinophils (%) (Auto) 11 H 0-10 % Basophils (%) (Auto) 0 0-10 % Neutrophils # (Auto) 4.2 1.8-7.8 10^3/uL Lymphocytes # (Auto) 3.5 1.0-4.0 10^3/uL Monocytes # (Auto) 0.7 0.0-1.0 10^3/uL Eosinophils # (Auto) 1.1 H 0.0-0.3 10^3/uL Basophils # (Auto) 0.0 0.0-0.1 10^3/uL Immature Granulocyte # (Auto) 0.0 0.0-0.1 10^3/uL Sodium Level 140 135-145 MMOL/L Potassium Level 4.0 3.6-5.0 MMOL/L Chloride Level 105 98-107 MMOL/L Carbon Dioxide Level 26 21-32 MMOL/L Anion Gap 9 5-14 MMOL/L Blood Urea Nitrogen 11 7-18 MG/DL Creatinine 0.75 0.60-1.30 MG/DL Estimat Glomerular Filtration Rate > 60 BUN/Creatinine Ratio 15 Glucose Level 105 70-105 MG/DL Calcium Level 9.2 8.5-10.1 MG/DL Corrected Calcium 8.8 8.5-10.1 MG/DL Magnesium Level 2.0 1.6-2.4 MG/DL Total Bilirubin 0.2 0.1-1.0 MG/DL Aspartate Amino Transf (AST/SGOT) 18 5-34 U/L Alanine Aminotransferase (ALT/SGPT) 21 0-55 U/L Alkaline Phosphatase 101 40-136 U/L Total Protein 8.2 6.4-8.2 GM/DL Albumin 4.5 3.2-4.5 GM/DL Serum Test, Qualitative NEGATIVE NEGATIVE Serum Alcohol < 10 <10 MG/DL Urine Color YELLOW Urine Clarity SL CLOUDY Urine pH 5.0 5-9 Urine Specific [place] >=1.030 1.016-1.022 Urine Protein NEGATIVE NEGATIVE Urine Glucose (UA) NEGATIVE NEGATIVE Urine Ketones NEGATIVE NEGATIVE Urine Nitrite NEGATIVE NEGATIVE Urine Bilirubin NEGATIVE NEGATIVE Urine Urobilinogen 1.0 < = 1.0 MG/DL Urine Leukocyte Esterase NEGATIVE NEGATIVE Urine RBC (Auto) TRACE-I NEGATIVE Urine RBC RARE /HPF Urine WBC NONE /HPF Urine Squamous Epithelial Cells 2-5 /HPF Urine Crystals PRESENT H /LPF Urine Calcium Oxalate Crystals LARGE H /LPF Urine Bacteria TRACE /HPF Urine Casts NONE /LPF Urine Mucus LARGE H /LPF Urine Culture Indicated NO Urine Opiates Screen NEGATIVE NEGATIVE Urine Oxycodone Screen NEGATIVE NEGATIVE Urine Methadone Screen NEGATIVE NEGATIVE Urine Propoxyphene Screen NEGATIVE NEGATIVE Urine Barbiturates Screen NEGATIVE NEGATIVE Ur Tricyclic Antidepressants Screen NEGATIVE NEGATIVE Urine Phencyclidine Screen NEGATIVE NEGATIVE Urine Amphetamines Screen NEGATIVE NEGATIVE Urine Methamphetamines Screen NEGATIVE NEGATIVE Urine Benzodiazepines Screen NEGATIVE NEGATIVE Urine Cocaine Screen NEGATIVE NEGATIVE Urine Cannabinoids Screen NEGATIVE NEGATIVE My Orders Orders - MILTON KIRK DO Ed Iv/Invasive Line Start (09/05/20 20:29) Monitor-Rhythm Ecg Trace Only (09/05/20 20:29) Ct Head Wo-R/O Stroke (09/05/20 20:29) Alcohol (09/05/20 20:29) Cbc With Automated Diff (09/05/20 20:29) Comprehensive Metabolic Panel (09/05/20 20:29) Drug Screen Stat (Urine) (09/05/20 20:29) Hcg,Qualitative Serum (09/05/20 20:29) Magnesium (09/05/20 20:29) Ua Culture If Indicated (09/05/20 20:29) Ed Iv/Invasive Line Start (09/05/20 20:29) Lactated Ringers (Lr 1000 Ml Iv Solution (09/05/20 20:30) Ondansetron Injection (Zofran Injectio (09/05/20 20:30) Scopolamine Patch (Transderm-Scop Patch) (09/05/20 20:30) Meclizine Tablet (Antivert Tablet) (09/05/20 22:15) Medications Given in ED Current Medications Medications Dose Ordered Sig/Christiano Route Start Time Stop Time Status Last Admin Dose Admin Lactated Ringer's 1,000 ml @ 0 mls/hr Q0M ONCE IV 09/05/20 20:30 09/05/20 20:32 DC 09/05/20 20:53 0 MLS/HR Meclizine HCl 25 mg ONCE ONCE PO 09/05/20 22:15 09/05/20 22:16 DC 09/05/20 22:33 25 MG Ondansetron HCl 4 mg ONCE ONCE IVP 09/05/20 20:30 09/05/20 20:32 DC 09/05/20 20:52 4 MG Scopolamine 1.5 mg ONCE ONCE TD 09/05/20 20:30 09/05/20 20:32 DC 09/05/20 20:52 1.5 MG Vital Signs/I&O Capillary Refill : Diagnostic Imaging Comments CT HEAD--PER RADIOLOGIST VIA PHONE AT 2172 FINDINGS: The ventricles and cortical sulci are age-appropriate. There is no midline shift or mass effect. No acute intracranial hemorrhage is seen. There is no CT evidence of acute territorial ischemia. The calvarium appears intact. Visualized paranasal sinuses are clear. IMPRESSION: 1. No acute intracranial hemorrhage. No CT evidence of acute territorial ischemia. Reviewed: Reviewed by Me Departure Impression Primary Impression: Dizziness Disposition: 01 HOME, SELF-CARE Condition: Improved Departure-Patient Inst. Referrals: [facility] (PCP/Family) Primary Care Physician Patient Instructions: Vertigo (a Type of Dizziness) (DC) Add. Discharge Instructions: HOME, REST LOTS OF CLEAR LIQUIDS WEAR SCOPOLAMINE FOR 72 HOURS FOLLOW UP WITH YOUR DR IN 2-3 DAYS IF NO BETTER All discharge instructions reviewed with patient and/or family. Voiced understanding. Scripts Scopolamine (Transderm-Scop) 1 Each Patch.td72 1 EACH TD Q72H, #3 PATCH Prov: MILTON KIRK DO 09/05/20 Meclizine HCl (Meclizine HCl) 25 Mg Tablet 50 MG PO Q6 PRN for DIZZINESS, #15 TAB Prov: MILTON KIRK DO 09/05/20 Ondansetron (Ondansetron Odt) 4 Mg Tab.rapdis 4 MG PO Q4H for Nausea/Vomiting, #10 TAB Prov: MILTON KIRK DO 09/05/20 MILTON KIRK DO Sep 05, 2020 22:03
[2020-09-05] MEDS ORDERED: MECLIZINE 25 MG (ANTIVERT) TAB PO ONE (22:15)
[2020-09-05 22:35] VITALS: BP 107/67
== END 2020-09-05 22:36 | disposition home or self-care (01) ==
LOC: EDUNIT# 19:21 → ER 19:23
DX: R42 Dizziness and giddiness (principal); F17.210 Nicotine dependence, cigarettes, uncomplicated; F17.290 Nicotine dependence, other tobacco product, uncomplicated; Z88.5 Allergy status to narcotic agent
CPT/HCPCS: 70450; 80053; 80306; 81000; 83735; 84703; 85025; 93041; 99284; G0480; 36415; 80320

== ENCOUNTER 2021-03-06 15:10 | Emergency (ER) | payer SELFPAY ==
[~2021-03-06] VITALS: Ht 152 cm; Wt 75.0 kg
[~2021-03-06 15:10] MED LIST changes: +MECL-149 PO; +ONDA4TAB11 PO; +SCOP1PAT11 TD
[2021-03-06 15:18] VITALS: BP 109/71
--- NOTE | 2021-03-06 15:36 | ED Upper Extremity ---
General Chief Complaint: Upper Extremity Stated Complaint: FINGER NUMBNESS,HAND PAIN/INJURY Nursing Triage Note: AMB TO ED WITH MOTHER LAST NOT GOT MAD AND HIT A WALL C/O PAIN IN R HAND. Source: patient Exam Limitations: no limitations History of Present Illness Date Seen by Provider: Mar 06, 2021 Time Seen by Provider: 15:22 Initial Comments Patient is a 20-year-old female who presents to the emergency department today with a chief complaint of right hand pain, medial dorsal aspect. Patient states late last night she punched a wall. She has been taking Tylenol and ibuprofen and icing it since it happened. Complains of numbness to her right middle finger. She is right-hand dominant. Is able to move it but not able to make a fist completely. No complaints of wrist elbow or shoulder pain. No other complaints of illness or injury. All other review of systems reviewed and negative except as stated. Onset: yesterday Severity: moderate Pain/Injury Location: right 5th finger Method of Injury: direct blow Modifying Factors: Improves With Immobilization; Worse With Movement Allergies and Home Medications Allergies Coded Allergies: oxycodone (Verified Allergy, Unknown, 02/12/18) Home Medications Cephalexin 500 Mg Tablet, 500 MG PO QID Prescribed by: RAMÓN GONZALES on 09/21/18 173 Ibuprofen 800 Mg Tablet, 800 MG PO Q8H PRN for PAIN Prescribed by: RAMÓN GONZALES on 09/21/18 1733 Meclizine HCl 25 Mg Tablet, 50 MG PO Q6 PRN for DIZZINESS Prescribed by: MILTON KIRK on 09/05/202234 Ondansetron 4 Mg Tab.rapdis, 4 MG PO Q4H Prescribed by: MILTON KIRK on 09/05/202234 Pantoprazole Sodium 40 Mg Tablet.dr, 40 MG PO DAILY Prescribed by: BEAU VELÁSQUEZ on 02/26/18 1203 Scopolamine 1 Each Patch.td72, 1 EACH TD Q72H Prescribed by: MILTON KIRK on 09/05/202234 Patient Home Medication List Home Medication List Reviewed: Yes Review of Systems Constitutional: see HPI Respiratory: no symptoms reported Cardiovascular: no symptoms reported Gastrointestinal: no symptoms reported Genitourinary: no symptoms reported Musculoskeletal: joint pain (right hand), joint swelling Skin: other (abrasion) Psychiatric/Neurological: Numbness (right 3rd finger) All Other Systems Reviewed Negative Unless Noted: Yes Past Mzokunl-Funxgl-Lkcygn Hx Immunizations Up To Date Tetanus Booster (TDap): Less than 5yrs Seasonal Allergies Seasonal Allergies: No Past Medical History Surgeries: Yes (LEFT HIP SURGERY) Orthopedic Respiratory: No Cardiac: No Neurological: No Reproductive Disorders: No Genitourinary: No Gastrointestinal: No Musculoskeletal: Yes (LEFT HIP SURGERY) Endocrine: No HEENT: No Cancer: No Psychosocial: Yes (DRUG AND ALCOHOL USE/ABUSE) Depression Integumentary: No Blood Disorders: No Family Medical History SOCIAL HISTORY: -ETOH--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 0.0oz. 81.765527py; 32.00 BMI Method:Estimated General Appearance: WD/WN, no apparent distress Cardiovascular: regular rate, rhythm Respiratory: no respiratory distress, no accessory muscle use Shoulder: normal inspection, non-tender, no evidence of injury, normal ROM Elbow/Forearm: normal inspection, non-tender, no evidence of injury, normal ROM Wrist: Yes normal inspection, Yes non-tender, Yes no evidence of injury, Yes normal ROM Hand: Right, abrasions (over 5th MCP joint), bone tenderness (5th MCP joint), limited ROM, stiffness, swelling Neurologic/Tendon: sensory deficit (decreased sensation to 3rd finger circumferentially) Neurologic/Psychiatric: alert, normal mood/affect, oriented x 3 Skin: normal color, warm/dry, other (abrasion over 5th MCP joint right hand) Progress/Results/Core Measures Results/Orders My Orders Orders - GERA FRANKS MD Hand, Right, 3 Views (03/06/21 15:31) Vital Signs/I&O 03/06/21 15:18 Pulse 82 Resp 18 B/P (MAP) 109/71 (84) Pulse Ox 97 O2 Delivery Room Air 2 Blood Pressure Mean: 84 Departure Impression Primary Impression: Contusion of right hand Qualified Codes: S60.221A - Contusion of right hand, initial encounter Disposition: 01 HOME, SELF-CARE Condition: Stable Departure-Patient Inst. Decision time for Depature: 15:35 Referrals: [facility] (PCP/Family) Primary Care Physician Patient Instructions: Hand Pain (DC) Add. Discharge Instructions: continue to ice the hand off an on another 24 hours. pain medications, over the counter as needed. alternate tylenol and ibuprofen. always take ibuprofen with food. return to the emergency department for any new, concerning or emergent symptoms. GERA FRANKS MD Mar 06, 2021 15:36
--- NOTE | 2021-03-06 15:57 | Diagnostic Imaging Report ---
INDICATION: Injury, hand pain. EXAMINATION: Right hand at 3:45 p.m. Three views were obtained. COMPARISON: There is no prior study available for comparison. FINDINGS: There is no fracture, dislocation or acute bony abnormality evident. The soft tissues are unremarkable. There is no sign of a radiopaque foreign body. IMPRESSION: There is no evidence for an acute bony abnormality or for a radiopaque foreign body. Dictated by: Dictated on workstation # [id number]
== END 2021-03-06 15:54 | disposition home or self-care (01) ==
LOC: EDUNIT# 15:10 → ER 15:15
DX: S60.221A Contusion of right hand, initial encounter (principal); W22.01XA Walked into wall, initial encounter
CPT/HCPCS: 73130

== ENCOUNTER 2021-04-27 20:52 | Emergency (ER) | payer SELFPAY ==
[~2021-04-27] VITALS: Ht 152.4 cm; Wt 75.0 kg
[~2021-04-27 20:52] MED LIST changes: +SCOP1PAT10 TD; -SCOP1PAT11 TD
--- NOTE | 2021-04-27 21:14 | ED Abdominal Pain ---
General Stated Complaint: R SIDE PAIN Source of Information: Patient Exam Limitations: No Limitations History of Present Illness Date Seen by Provider: Apr 27, 2021 Time Seen by Provider: 21:12 Initial Comments To ER by mother by private vehicle with reports of right lower abdominal pain intermittent waxing and waning since yesterday. Timing/Duration: 1-2 Days Severity/Quality: Moderate Location: Generalized Abdomen Radiation: No Radiation Activities at Onset: None Associated Symptoms: Denies Symptoms Allergies and Home Medications Allergies Coded Allergies: oxycodone (Verified Allergy, Unknown, 02/12/18) Patient Home Medication List Home Medication List Reviewed: Yes Cephalexin (Cephalexin) 500 Mg Tablet, 500 MG PO QID Prescribed by: RAMÓN GONZALES on 09/21/18 1732 Hydrocodone Bit/Acetaminophen (Lortab 5 Mg Tablet) Unknown Strength Tablet, Unk nown Dose PO, (Reported) Entered as Reported by: DAVID ORTEGA on 02/12/18 1128 Ibuprofen (Ibuprofen) 800 Mg Tablet, 800 MG PO Q8H PRN for PAIN Prescribed by: RAMÓN GONZALES on 09/21/18 1733 Ibuprofen (Ibuprofen) 600 Mg Tablet, 600 MG PO Q6H PRN for PAIN-MILD Prescribed by: ELEUTERIO BURGESS on 04/27/212208 Meclizine HCl (Meclizine HCl) 25 Mg Tablet, 50 MG PO Q6 PRN for DIZZINESS Prescribed by: MILTON KIRK on 09/05/202234 Ondansetron (Ondansetron Odt) 4 Mg Tab.rapdis, 4 MG PO Q4H Prescribed by: MILTON KIRK on 09/05/202234 Pantoprazole Sodium (Protonix) 40 Mg Tablet.dr, 40 MG PO DAILY Prescribed by: BEAU VELÁSQUEZ on 02/26/18 1203 Scopolamine (Transderm-Scop) 1 Each Patch.td72, 1 EACH TD Q72H Prescribed by: MILTON KIRK on 09/05/202234 Tamsulosin HCl (Flomax) 0.4 Mg Cap, 0.4 MG PO DAILY Prescribed by: ELEUTERIO BURGESS on 04/27/212208 Review of Systems Review of Systems Constitutional: see HPI EENTM: No Symptoms Reported Respiratory: No Symptoms Reported Cardiovascular: No Symptoms Reported Gastrointestinal: See HPI, Abdominal Pain Genitourinary: No Symptoms Reported Musculoskeletal: no symptoms reported Skin: no symptoms reported Psychiatric/Neurological: No Symptoms Reported Endocrine: No Symptoms Reported Hematologic/Lymphatic: No Symptoms Reported Past Wqgygbu-Sezntf-Jtsggp Hx Immunizations Up To Date Tetanus Booster (TDap): Less than 5yrs Seasonal Allergies Seasonal Allergies: No Past Medical History Surgeries: Yes (LEFT HIP SURGERY) Orthopedic Respiratory: No Cardiac: No Neurological: No Reproductive Disorders: No Genitourinary: No Gastrointestinal: No Musculoskeletal: Yes (LEFT HIP SURGERY) Endocrine: No HEENT: No Cancer: No Psychosocial: Yes (DRUG AND ALCOHOL USE/ABUSE) Depression Integumentary: No Blood Disorders: No Family Medical History SOCIAL HISTORY: -ETOH--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 0.0oz. 81.022588ez; 32.00 BMI Method:Estimated General Appearance: WD/WN, no apparent distress HEENT: PERRL/EOMI, normal ENT inspection Respiratory: no respiratory distress, no accessory muscle use Cardiovascular: regular rate, rhythm, no murmur Gastrointestinal: normal bowel sounds, soft, tenderness Extremities: normal range of motion, non-tender, normal inspection Neurologic/Psychiatric: alert, normal mood/affect, oriented x 3 Skin: normal color, warm/dry Progress/Results/Core Measures Results/Orders Lab Results Laboratory Tests Test 04/27/21 21:10 04/27/21 21:13 Range/Units Urine Color YELLOW Urine Clarity CLEAR Urine pH 5.5 5-9 Urine Specific [place] >=1.030 1.016-1.022 Urine Protein NEGATIVE NEGATIVE Urine Glucose (UA) NEGATIVE NEGATIVE Urine Ketones NEGATIVE NEGATIVE Urine Nitrite NEGATIVE NEGATIVE Urine Bilirubin NEGATIVE NEGATIVE Urine Urobilinogen 1.0 < = 1.0 MG/DL Urine Leukocyte Esterase NEGATIVE NEGATIVE Urine RBC (Auto) 3+ H NEGATIVE Urine RBC 25-50 H /HPF Urine WBC 2-5 /HPF Urine Crystals PRESENT H /LPF Urine Amorphous Sediment FEW LOS URATES H /LPF Urine Bacteria TRACE /HPF Urine Casts NONE /LPF Urine Mucus SMALL H /LPF Urine Culture Indicated NO White Blood Count 9.2 4.3-11.0 10^3/uL Red Blood Count 4.79 3.80-5.11 10^6/uL Hemoglobin 12.9 11.5-16.0 g/dL Hematocrit 41 35-52 % Mean Corpuscular Volume 85 80-99 fL Mean Corpuscular Hemoglobin 27 25-34 pg Mean Corpuscular Hemoglobin Concent 32 32-36 g/dL Red Cell Distribution Width 13.1 10.0-14.5 % Platelet Count 378 130-400 10^3/uL Mean Platelet Volume 9.9 9.0-12.2 fL Immature Granulocyte % (Auto) 0 % Neutrophils (%) (Auto) 59 42-75 % Lymphocytes (%) (Auto) 30 12-44 % Monocytes (%) (Auto) 8 0-12 % Eosinophils (%) (Auto) 3 0-10 % Basophils (%) (Auto) 0 0-10 % Neutrophils # (Auto) 5.4 1.8-7.8 10^3/uL Lymphocytes # (Auto) 2.8 1.0-4.0 10^3/uL Monocytes # (Auto) 0.7 0.0-1.0 10^3/uL Eosinophils # (Auto) 0.3 0.0-0.3 10^3/uL Basophils # (Auto) 0.0 0.0-0.1 10^3/uL Immature Granulocyte # (Auto) 0.0 0.0-0.1 10^3/uL Sodium Level 140 135-145 MMOL/L Potassium Level 3.8 3.6-5.0 MMOL/L Chloride Level 104 98-107 MMOL/L Carbon Dioxide Level 24 21-32 MMOL/L Anion Gap 12 5-14 MMOL/L Blood Urea Nitrogen 15 7-18 MG/DL Creatinine 0.78 0.60-1.30 MG/DL Estimat Glomerular Filtration Rate 92 BUN/Creatinine Ratio 19 Glucose Level 103 70-105 MG/DL Calcium Level 10.2 H 8.5-10.1 MG/DL Corrected Calcium 9.8 8.5-10.1 MG/DL Total Bilirubin 0.3 0.1-1.0 MG/DL Aspartate Amino Transf (AST/SGOT) 24 5-34 U/L Alanine Aminotransferase (ALT/SGPT) 35 0-55 U/L Alkaline Phosphatase 118 40-136 U/L Total Protein 8.0 6.4-8.2 GM/DL Albumin 4.5 3.2-4.5 GM/DL Serum Test, Qualitative NEGATIVE NEGATIVE My Orders Orders - ELEUTERIO BURGESS APRN Cbc With Automated Diff (04/27/21 21:07) Comprehensive Metabolic Panel (04/27/21 21:07) Ua Culture If Indicated (04/27/21 21:07) Hcg,Qualitative Serum (04/27/21 21:07) Ketorolac Injection (Toradol Injection) (04/27/21 21:15) Ct Abd/Pelv W (Appendicitis) (04/27/21 21:07) Rx-Hydrocodone/Apap 5-325 Mg (Rx-Vicodin (04/27/21 22:15) Medications Given in ED Current Medications Medications Dose Ordered Sig/Christiano Route Start Time Stop Time Status Last Admin Dose Admin Ketorolac Tromethamine 15 mg ONCE ONCE IVP 04/27/21 21:15 04/27/21 21:16 DC 04/27/21 21:20 15 MG Vital Signs/I&O 04/27/21 21:00 Temp 36.4 Pulse 93 Resp 18 B/P (MAP) 121/81 (94) Pulse Ox 97 O2 Delivery Room Air Departure Communication (Admissions) Family Conversation I did discuss with radiologist the apparent cystic structure at the cervix which she reports could be a nabothian cyst. Discussed this finding with the patient, she states that she is aware of them and they've been there for a while. NAME: [facility] REC#: [id number] PT STATUS: REG ER : 2000 PHYSICIAN: ELEUTERIO BURGESS APRN ADMIT DATE: 04/27/21/ER Draft Date of Exam:04/27/21 CT ABD/PELV W (APPENDICITIS) PROCEDURE: CT abdomen and pelvis with contrast, rule out appendicitis. TECHNIQUE: Multiple contiguous axial images were obtained through the abdomen and pelvis after the administration of intravenous contrast. All CT scans use one or more of the following dose optimizing techniques: automated exposure control, MA and/or KvP adjustment based on patient size and exam type or iterative reconstruction. INDICATION: Right lower quadrant abdominal pain. COMPARISON: 06/25/2020. FINDINGS: Included portions of the lung bases are clear. CT ABDOMEN: Normal appendix is identified. Small bowel loops are nondistended. The kidneys, adrenal glands, spleen, pancreas and liver have a normal CT appearance. There is no loculated fluid collection, free fluid or free air within the abdomen. No abnormal mesenteric or retroperitoneal adenopathy is seen. Osseous structures show no acute abnormality. CT PELVIS: There is very subtle 2 to 3 mm calculus within the expected location of the distal right ureter (image 94, series 2). Findings are suggestive of distal ureteral calculus. There is, however, no significant hydroureter. No additional calculi are seen within the urinary bladder. Urinary bladder is unopacified and minimally distended. There is no loculated fluid collection, free fluid or free air within the pelvis. No abnormal lymph node is identified. Osseous structures show no acute abnormality. IMPRESSION: 1. Faint subtle 2 to 3 mm calculus within the distal right ureter. No significant proximal hydroureteronephrosis. 2. Normal appendix. Dictated on workstation # [id number] Dict: 04/27/212148 Trans: 04/27/212157 [facility] [id number] Interpreted by: ELAN PEREZ MD Electronically signed by: Impression Primary Impression: Ureteral stone Disposition: HOME, SELF-CARE Condition: Stable Departure-Patient Inst. Decision time for Depature: 22:06 Ref[place]: [facility] [place] Primary Care Physician Patient Instructions: Kidney Stones (DC) Add. Discharge Instructions: 1. return to er for any concerns 2. FOllow up with your doctor next week for evaluation of the kidney stone and for a pelvic exam to evaluate the cystic structure seen in the cervix which likely a condition called a nabothian cyst. Scripts Tamsulosin HCl (Flomax) 0.4 Mg Cap 0.4 MG PO DAILY, #10 CAP Prov: ELEUTERIO BURGESS [employer] ENGINEER 04/27/21 Ibuprofen (Ibuprofen) 600 Mg Tablet 600 MG PO Q6H PRN for PAIN-MILD, #20 TAB Prov: ELEUTERIO BURGESS APRN 04/27/21 Work/School Note: Work Release Form Date Seen in the Emergency Department: Apr 27, 2021 Return to Work: Apr 29, 2021 ELEUTERIO BURGESS APRN Apr 27, 2021 21:14
[2021-04-27] MEDS ORDERED: KETOROLAC 30 MG/ML VIAL IVP ONE (21:15)
[2021-04-27 21:40] LABS: BILIRUBIN,URINE NEGATIVE (NEGATIVE); CLARITY,URINE CLEAR; COLOR,URINE YELLOW; GLUCOSE, URINE (UA) NEGATIVE (NEGATIVE); KETONES,URINE NEGATIVE (NEGATIVE); LEUKOCYTE ESTERASE ,URINE NEGATIVE (NEGATIVE); NITRITE,URINE NEGATIVE (NEGATIVE); PH,URINE 5.5 (5-9); PROTEIN,URINE NEGATIVE (NEGATIVE)
[2021-04-27 21:42] LABS: BASOPHILS % (AUTO) 0 % (0-10); EOSINOPHILS # (AUTO) 0.3 10^3/uL (0.0-0.3); EOSINOPHILS % (AUTO) 3 % (0-10); HEMATOCRIT 41 % (35-52); HEMOGLOBIN 12.9 g/dL (11.5-16.0); LYMPHOCYTES # (AUTO) 2.8 10^3/uL (1.0-4.0); LYMPHOCYTES % (AUTO) 30 % (12-44); MEAN CORPUSCULAR HEMOGLOBIN 27 pg (25-34); MEAN CORPUSCULAR HGB CONC 32 g/dL (32-36); MEAN CORPUSCULAR VOLUME 85 fL (80-99); MEAN PLATELET VOLUME 9.9 fL (9.0-12.2); MONOCYTES # (AUTO) 0.7 10^3/uL (0.0-1.0); MONOCYTES % (AUTO) 8 % (0-12); NEUTROPHILS # (AUTO) 5.4 10^3/uL (1.8-7.8); NEUTROPHILS % (AUTO) 59 % (42-75); PLATELET COUNT 378 10^3/uL (130-400); WHITE BLOOD COUNT 9.2 10^3/uL (4.3-11.0)
[2021-04-27 21:52] LABS: ALBUMIN 4.5 GM/DL (3.2-4.5)
[2021-04-27 21:53] LABS: POTASSIUM 3.8 MMOL/L (3.6-5.0)
[2021-04-27 21:54] LABS: CALCIUM 10.2 MG/DL (8.5-10.1)
[2021-04-27 21:57] LABS: BILIRUBIN,TOTAL 0.3 MG/DL (0.1-1.0)
[2021-04-27 21:59] LABS: CREATININE SERUM 0.78 MG/DL (0.60-1.30)
--- NOTE | 2021-04-27 21:59 | Diagnostic Imaging Report ---
PROCEDURE: CT abdomen and pelvis with contrast, rule out appendicitis. TECHNIQUE: Multiple contiguous axial images were obtained through the abdomen and pelvis after the administration of intravenous contrast. All CT scans use one or more of the following dose optimizing techniques: automated exposure control, MA and/or KvP adjustment based on patient size and exam type or iterative reconstruction. INDICATION: Right lower quadrant abdominal pain. COMPARISON: 06/25/2020. FINDINGS: Included portions of the lung bases are clear. CT ABDOMEN: Normal appendix is identified. Small bowel loops are nondistended. The kidneys, adrenal glands, spleen, pancreas and liver have a normal CT appearance. There is no loculated fluid collection, free fluid or free air within the abdomen. No abnormal mesenteric or retroperitoneal adenopathy is seen. Osseous structures show no acute abnormality. CT PELVIS: There is very subtle 2 to 3 mm calculus within the expected location of the distal right ureter (image 94, series 2). Findings are suggestive of distal ureteral calculus. There is, however, no significant hydroureter. No additional calculi are seen within the urinary bladder. Urinary bladder is unopacified and minimally distended. There is no loculated fluid collection, free fluid or free air within the pelvis. No abnormal lymph node is identified. Osseous structures show no acute abnormality. Multiple cystic hypodensities are identified involving the cervix. IMPRESSION: 1. Faint subtle 2 to 3 mm calculus within the distal right ureter. No significant proximal hydroureteronephrosis. 2. Normal appendix. 3. Multiple cystic appearing hypodensities of the cervix. Most likely, these represent benign nabothian cyst. Cervical neoplasm such as adenoma malignant may have a similar appearance. Correlation with pelvic sonogram and Pap smear is recommended. Dictated by: Dictated on workstation # [id number]
[2021-04-27 22:01] LABS: BACTERIA,URINE TRACE /HPF; RBC,URINE 25-50 /HPF
[2021-04-27 22:02] LABS: AMORPHOUS SEDIMENT,UR FEW AMOR URATES /LPF
[2021-04-27] MEDS ORDERED: IBUP-1773 PO (22:09)
[2021-04-27] MEDS ORDERED: TMSL.4C PO (22:09)
[2021-04-27] MEDS ORDERED: morphine INJ 10 MG/ML 1ML (SYR OR VIAL) IVP STA (22:13)
[2021-04-27] MEDS ORDERED: ACHD5005 PO (22:15)
[2021-04-27 22:29] VITALS: BP 123/78
== END 2021-04-27 22:27 | disposition home or self-care (01) ==
LOC: EDUNIT# 20:52 → ER 20:55
DX: N20.1 Calculus of ureter (principal)
CPT/HCPCS: 36415; 74177; 80053; 81000; 84703; 85025

== ENCOUNTER 2021-05-04 01:37 | Emergency (ER) | payer SELFPAY ==
[~2021-05-04] VITALS: Ht 152.4 cm; Wt 73.4 kg
[~2021-05-04 01:37] MED LIST changes: +IBUP-1773 PO; +TMSL.4C PO
[2021-05-04] MEDS ORDERED: DICYCLOMINE 10 MG/ML (BENTYL) 2 ML AMP IM STA (01:58)
[2021-05-04] MEDS ORDERED: ONDANSETRON 4 MG/2 ML (SDV) Z0FRAN IVP ONE (02:00)
[2021-05-04] MEDS ORDERED: KETOROLAC 30 MG/ML VIAL IVP ONE (02:00)
[2021-05-04] MEDS ORDERED: NS IV 1000 ML 1,000 ML IV SCH (02:00)
--- NOTE | 2021-05-04 02:04 | ED Abdominal Pain ---
General Chief Complaint: Abdominal/GI Problems Stated Complaint: N/V,RLQ PAIN Nursing Triage Note: Pt arrival to ER with complaint of RUQ Abdominal Pain x2.5 hours. Pt states that she was asleep and woke up to EXCRUTIATING pain. Pt states that she took a hydrocodone that she was prescribed within the last week for the same complaint and went back to sleep. Pt states that she again woke up in EXCRUTIATING pain and decided to come to ER. Pt also complains of having pain with urination. Pt states that she was screening her urine for a couple days but forgot her screen so she hasn't been screening it for the last two days. Source of Information: Patient Exam Limitations: No Limitations History of Present Illness Date Seen by Provider: May 04, 2021 Time Seen by Provider: 01:50 Initial Comments Patient is a 21-year-old female who presents to the emergency department today with a chief complaint of right-sided abdominal pain onset about 11:00 last night. Patient states that she was recently diagnosed with a right-sided kidney stone about a week ago. She states she strained her urine for about 5 days and passed what she thought looked like "sand". Patient states that her pain steadily improved and has been gone for the last couple of days. Tonight she states the pain started back again very sharp. She states that she took a hydrocodone and 30 minutes later started vomiting. She denies any burning with urination or hematuria. No abnormal vaginal discharge. Last menstrual cycle was a couple of weeks ago. No prior surgeries on her abdomen although the patient states that she has a "bad gallbladder" diagnosed 2 years ago but did not have the money to have it taken care of. No recent fevers or chills. No diarrhea. Last bowel movement was today and "normal". She remains a little nauseated at this time. Pain seems to radiate into her lower back. She denies pain in her right shoulder. All other review of systems reviewed and negative except as stated. Timing/Duration: 4-6 Hours Severity/Quality: Severe Location: RUQ Radiation: Back (low back) Activities at Onset: Sleeping Associated Symptoms: Back Pain, Nausea/Vomiting Allergies and Home Medications Allergies Coded Allergies: oxycodone (Verified Allergy, Unknown, 02/12/18) Patient Home Medication List Home Medication List Reviewed: Yes Cephalexin (Cephalexin) 500 Mg Tablet, 500 MG PO QID Prescribed by: RAMÓN GONZALES on 09/21/18 1732 Hydrocodone Bit/Acetaminophen (Lortab 5 Mg Tablet) Unknown Strength Tablet, Unknown Dose PO, (Reported) Entered as Reported by: DAVID ORTEGA on 02/12/18 1128 Hydrocodone/Acetaminophen (Hydrocodone-Acetamin 5-325 mg) 1 Each Tablet, 1 TAB PO Q4H PRN for PAIN-MODERATE (5-7) Prescribed by: ELEUTERIO BURGESS on 04/27/21 221 Ibuprofen (Ibuprofen) 800 Mg Tablet, 800 MG PO Q8H PRN for PAIN Prescribed by: RAMÓN GONZALES on 09/21/18 1733 Ibuprofen (Ibuprofen) 600 Mg Tablet, 600 MG PO Q6H PRN for PAIN-MILD Prescribed by: ELEUTERIO BURGESS on 04/27/212208 Meclizine HCl (Meclizine HCl) 25 Mg Tablet, 50 MG PO Q6 PRN for DIZZINESS Prescribed by: MILTON KIRK on 09/05/20 223 Ondansetron (Ondansetron Odt) 4 Mg Tab.rapdis, 4 MG PO Q4H Prescribed by: MILTON KIRK on 09/05/20 223 Pantoprazole Sodium (Protonix) 40 Mg Tablet.dr, 40 MG PO DAILY Prescribed by: BEAU VELÁSQUEZ on 02/26/18 1203 Scopolamine (Transderm-Scop) 1 Each Patch.td72, 1 EACH TD Q72H Prescribed by: MILTON KIRK on 09/05/20 223 Tamsulosin HCl (Flomax) 0.4 Mg Cap, 0.4 MG PO DAILY Prescribed by: ELEUTERIO BURGESS on 04/27/212208 Review of Systems Review of Systems Constitutional: see HPI EENTM: No Symptoms Reported Cardiovascular: No Symptoms Reported Gastrointestinal: Abdominal Pain, Nausea, Vomiting Genitourinary: No Symptoms Reported Musculoskeletal: no symptoms reported Skin: no symptoms reported All Other Systems Reviewed Negative Unless Noted: Yes Past Kuknvsz-Chwdcy-Xwnnfu Hx Patient Social History Tobacco Use?: Yes Smokeless Tobacco Frequency: Current Everyday User Use of E-Cig and/or Vaping dev: No Substance use?: No Alcohol Use?: No Pt feels they are or have been: No Immunizations Up To Date Tetanus Booster (TDap): Less than 5yrs Influenza Vaccine Up-to-Date: No; Not Current Seasonal Allergies Seasonal Allergies: No Past Medical History Surgeries: Yes (LEFT HIP SURGERY) Orthopedic Respiratory: No Cardiac: No Neurological: No Last Menstrual Period: Apr 24, 2021 Reproductive Disorders: No Genitourinary: No Gastrointestinal: No Musculoskeletal: Yes (LEFT HIP SURGERY) Endocrine: No HEENT: No Cancer: No Psychosocial: Yes (DRUG AND ALCOHOL USE/ABUSE) Depression Integumentary: No Blood Disorders: No Family Medical History SOCIAL HISTORY: -ETOH--HISTORY OF ABUSE--1/2 PINT OF WHISKEY/EVERY DAY--CLAIMS NO USE FOR 4 MONTHS, PER PT ON 09/05/20 -DRUGS--HISTORY OF REGULAR COCAINE USE/SNORTED IT--CLAIMS NO USE FOR 1 YEAR, PER PT ON 09/05/20 -SMOKES 1 PPD AND CHEWS TOBACCO Physical Exam Vital Signs Vital Signs - First Documented 05/04/21 01:42 Temp 37.1 Pulse 77 Resp 20 B/P (MAP) 132/87 (102) Pulse Ox 97 O2 Delivery Room Air Capillary Refill : Less Than 3 Seconds Height/Weight/BMI Height: 5'7.00" Weight: 180lbs. 0.0oz. 81.761574yh; 31.00 BMI Method:Estimated General Appearance: WD/WN, no apparent distress HEENT: PERRL/EOMI Neck: normal inspection Respiratory: lungs clear, normal breath sounds, no respiratory distress, no accessory muscle use Cardiovascular: regular rate, rhythm Gastrointestinal: soft, tenderness (RUQ and epigastrum; equivocal Rovsings. No significant rebound tenderness; She does seem a little distended.) Extremities: normal range of motion, non-tender, normal inspection Back: no CVA tenderness Neurologic/Psychiatric: alert, normal mood/affect, oriented x 3 Skin: normal color, warm/dry Progress/Results/Core Measures Results/Orders Lab Results Laboratory Tests Test 05/04/21 01:50 05/04/21 02:07 Range/Units Urine Color YELLOW Urine Clarity SL CLOUDY Urine pH 5.5 5-9 Urine Specific [place] >=1.030 1.016-1.022 Urine Protein NEGATIVE NEGATIVE Urine Glucose (UA) NEGATIVE NEGATIVE Urine Ketones NEGATIVE NEGATIVE Urine Nitrite NEGATIVE NEGATIVE Urine Bilirubin NEGATIVE NEGATIVE Urine Urobilinogen 0.2 < = 1.0 MG/DL Urine Leukocyte Esterase NEGATIVE NEGATIVE Urine RBC (Auto) 2+ H NEGATIVE Urine RBC 5-10 H /HPF Urine WBC NONE /HPF Urine Squamous Epithelial Cells 2-5 /HPF Urine Crystals NONE /LPF Urine Bacteria TRACE /HPF Urine Casts NONE /LPF Urine Mucus SMALL H /LPF Urine Culture Indicated NO White Blood Count 10.4 4.3-11.0 10^3/uL Red Blood Count 4.47 3.80-5.11 10^6/uL Hemoglobin 12.0 11.5-16.0 g/dL Hematocrit 38 35-52 % Mean Corpuscular Volume 85 80-99 fL Mean Corpuscular Hemoglobin 27 25-34 pg Mean Corpuscular Hemoglobin Concent 32 32-36 g/dL Red Cell Distribution Width 13.2 10.0-14.5 % Platelet Count 338 130-400 10^3/uL Mean Platelet Volume 9.6 9.0-12.2 fL Immature Granulocyte % (Auto) 0 % Neutrophils (%) (Auto) 57 42-75 % Lymphocytes (%) (Auto) 32 12-44 % Monocytes (%) (Auto) 8 0-12 % Eosinophils (%) (Auto) 2 0-10 % Basophils (%) (Auto) 0 0-10 % Neutrophils # (Auto) 6.0 1.8-7.8 10^3/uL Lymphocytes # (Auto) 3.3 1.0-4.0 10^3/uL Monocytes # (Auto) 0.9 0.0-1.0 10^3/uL Eosinophils # (Auto) 0.3 0.0-0.3 10^3/uL Basophils # (Auto) 0.0 0.0-0.1 10^3/uL Immature Granulocyte # (Auto) 0.0 0.0-0.1 10^3/uL Sodium Level 139 135-145 MMOL/L Potassium Level 4.0 3.6-5.0 MMOL/L Chloride Level 104 98-107 MMOL/L Carbon Dioxide Level 23 21-32 MMOL/L Anion Gap 12 5-14 MMOL/L Blood Urea Nitrogen 12 7-18 MG/DL Creatinine 0.93 0.60-1.30 MG/DL Estimat Glomerular Filtration Rate 75 BUN/Creatinine Ratio 13 Glucose Level 115 H 70-105 MG/DL Calcium Level 10.2 H 8.5-10.1 MG/DL Corrected Calcium 10.0 8.5-10.1 MG/DL Total Bilirubin 0.3 0.1-1.0 MG/DL Aspartate Amino Transf (AST/SGOT) 20 5-34 U/L Alanine Aminotransferase (ALT/SGPT) 22 0-55 U/L Alkaline Phosphatase 92 40-136 U/L Total Protein 7.4 6.4-8.2 GM/DL Albumin 4.2 3.2-4.5 GM/DL Lipase 22 8-78 U/L My Orders Orders - GERA FRANKS MD Urine Bedside (05/04/21 01:58) Ua Culture If Indicated (05/04/21 01:58) Cbc With Automated Diff (05/04/21 01:58) Comprehensive Metabolic Panel (05/04/21 01:58) Lipase (05/04/21 01:58) Abdomen/Kub 1view (05/04/21 01:58) Dicyclomine Injection (Bentyl Injection) (05/04/21 01:58) Ketorolac Injection (Toradol Injection) (05/04/21 02:00) Ns Iv 1000 Ml (Sodium Chloride 0.9%) (05/04/21 02:00) Ondansetron Injection (Zofran Injectio (05/04/21 02:00) Medications Given in ED Current Medications Medications Dose Ordered Sig/Christiano Route Start Time Stop Time Status Last Admin Dose Admin Ketorolac Tromethamine 15 mg ONCE ONCE IVP 05/04/21 02:00 05/04/21 02:01 DC 05/04/21 02:13 15 MG Ondansetron HCl 4 mg ONCE ONCE IVP 05/04/21 02:00 05/04/21 02:01 DC 05/04/21 02:13 4 MG Vital Signs/I&O 05/04/21 01:42 Temp 37.1 Pulse 77 Resp 20 B/P (MAP) 132/87 (102) Pulse Ox 97 O2 Delivery Room Air Blood Pressure Mean: 102 Progress Progress Note : Time: 03:07 Progress Note Patient is re-evaluated. is now pain free. I have reviewed her labs and imaging with her. She continues to have a little bit of microscopic hematuria. No evidence of infection of the urine. No abnormal labs, elevated WBC or abnormal LFT's to indicated acute gallbladder pathology. I have advised plenty of fluids, tylenol and ibuprofen. Follow up with [facility]. Return precautions given. Patient verbalizes understanding, all questions are sought and answered. PAtient is stable for discharge. Departure Impression Primary Impression: Abdominal pain Qualified Codes: R10.11 - Right upper quadrant pain Disposition: HOME, SELF-CARE Condition: Stable Departure-Patient Inst. Decision time for Depature: 03:10 Referrals: [facility] (PCP/Family) Primary Care Physician Patient Instructions: Abdominal Pain, Adult ED Add. Discharge Instructions: Drink plenty of fluids to stay well hydrated. Alternate tylenol and or ibuprofen for pain. Avoid to much fatty foods, as these can inflame an irritated gallbladder. Follow up with [facility] for further evaluation of your abdominal pain. Return to the ER for any new, concerning or emergent complaints, especially fever and vomiting. GERA FRANKS MD May 04, 2021 02:04
[2021-05-04 02:05] LABS: BILIRUBIN,URINE NEGATIVE (NEGATIVE); CLARITY,URINE SL CLOUDY; COLOR,URINE YELLOW; GLUCOSE, URINE (UA) NEGATIVE (NEGATIVE); KETONES,URINE NEGATIVE (NEGATIVE); LEUKOCYTE ESTERASE ,URINE NEGATIVE (NEGATIVE); NITRITE,URINE NEGATIVE (NEGATIVE); PH,URINE 5.5 (5-9); PROTEIN,URINE NEGATIVE (NEGATIVE)
[2021-05-04 02:14] LABS: BASOPHILS % (AUTO) 0 % (0-10); EOSINOPHILS # (AUTO) 0.3 10^3/uL (0.0-0.3); EOSINOPHILS % (AUTO) 2 % (0-10); HEMATOCRIT 38 % (35-52); LYMPHOCYTES # (AUTO) 3.3 10^3/uL (1.0-4.0); LYMPHOCYTES % (AUTO) 32 % (12-44); MEAN CORPUSCULAR HEMOGLOBIN 27 pg (25-34); MEAN CORPUSCULAR HGB CONC 32 g/dL (32-36); MEAN CORPUSCULAR VOLUME 85 fL (80-99); MEAN PLATELET VOLUME 9.6 fL (9.0-12.2); MONOCYTES # (AUTO) 0.9 10^3/uL (0.0-1.0); MONOCYTES % (AUTO) 8 % (0-12); NEUTROPHILS % (AUTO) 57 % (42-75); PLATELET COUNT 338 10^3/uL (130-400); WHITE BLOOD COUNT 10.4 10^3/uL (4.3-11.0)
[2021-05-04 02:14] LABS: BACTERIA,URINE TRACE /HPF
[2021-05-04 02:24] LABS: ALBUMIN 4.2 GM/DL (3.2-4.5)
[2021-05-04 02:26] LABS: CALCIUM 10.2 MG/DL (8.5-10.1)
[2021-05-04 02:27] LABS: TOTAL PROTEIN 7.4 GM/DL (6.4-8.2)
[2021-05-04 02:29] LABS: BILIRUBIN,TOTAL 0.3 MG/DL (0.1-1.0)
[2021-05-04 02:31] LABS: CREATININE SERUM 0.93 MG/DL (0.60-1.30)
[2021-05-04 03:22] VITALS: BP 93/59
--- NOTE | 2021-05-04 06:40 | Diagnostic Imaging Report ---
Indication: Right lower quadrant pain. History of distal right ureteral calculus. Comparison with CT scan 04/27/2021. FINDINGS: 2 mm calculus noted in the distal right ureter on previous CT scan. This is at the limits of resolution of plain film. There is suggestion this may still be present in the distal right ureter. No other calculi are seen. IMPRESSION: 2 mm calculus not definitely seen though there is a faint density that may represent the calculi still present on the right. Dictated by: Dictated on workstation # [id number]
== END 2021-05-04 03:17 | disposition home or self-care (01) ==
LOC: EDUNIT# 01:37 → ER 01:39
DX: R10.11 Right upper quadrant pain (principal); F17.200 Nicotine dependence, unspecified, uncomplicated
CPT/HCPCS: 36415; 74018; 80053; 81000; 83690; 84703; 85025

== ENCOUNTER 2021-07-04 17:18 | Emergency (ER) | payer SELFPAY | END 2021-07-04 17:39 | disposition left against medical advice (07) | LOC: EDUNIT# 17:18 → ER 17:20 | DX: R05.9 Cough, unspecified (principal); R50.9 Fever, unspecified ==

== ENCOUNTER 2021-09-28 23:04 | Emergency (ER) | payer SELFPAY | END 2021-09-29 | disposition left against medical advice (07) | LOC: ER 23:04 → EDUNIT# 09-29 03:47 | DX: R10.11 Right upper quadrant pain (principal) ==

== ENCOUNTER 2022-07-15 18:05 | Emergency (ER) | payer SELFPAY ==
[~2022-07-15] VITALS: Ht 152.4 cm; Wt 82.4 kg
[2022-07-15] MEDS ORDERED: IBUPROFEN 600 MG (MOTRIN) TAB PO ONE (18:30)
--- NOTE | 2022-07-15 18:36 | ED General ---
General Chief Complaint: Fever-Adult/Adol Stated Complaint: CHEST PAIN; COUGH Nursing Triage Note: Patient reports she has had a fever, nausea/vomiting, bodyaches, sore throat, and a cough for 7 days. Source of Information: Patient Exam Limitations: No Limitations History of Present Illness Date Seen by Provider: Jul 15, 2022 Time Seen by Provider: 18:15 Initial Comments Patient is a 22 yo female who presents with fever, nausea/vomiting, sore throat, and cough for 7 days. Fever this afternoon. No dysphonia, dysphaiga, or hoarseness. Timing/Duration: 1-3 Hours Severity: Mild Modifying Factors: improves with Other Allergies and Home Medications Allergies Coded Allergies: oxycodone (Verified Allergy, Unknown, 02/12/18) Patient Home Medication List Home Medication List Reviewed: Yes Cephalexin (Cephalexin) 500 Mg Tablet, 500 MG PO QID Prescribed by: RAMÓN GONZALES on 09/21/18 1732 Hydrocodone Bit/Acetaminophen (Lortab 5 Mg Tablet) Unknown Strength Tablet, Unknown Dose PO, (Reported) Entered as Reported by: DAVID ORTEGA on 02/12/18 1128 Hydrocodone/Acetaminophen (Hydrocodone-Acetamin 5-325 mg) 1 Each Tablet, 1 TAB PO Q4H PRN for PAIN-MODERATE (5-7) Prescribed by: ELEUTERIO BURGESS on 04/27/21 2215 Ibuprofen (Ibuprofen) 800 Mg Tablet, 800 MG PO Q8H PRN for PAIN Prescribed by: RAMÓN GONZALES on 09/21/18 1733 Ibuprofen (Ibuprofen) 600 Mg Tablet, 600 MG PO Q6H PRN for PAIN-MILD Prescribed by: ELEUTERIO BURGESS on 04/27/21 2209 Meclizine HCl (Meclizine HCl) 25 Mg Tablet, 50 MG PO Q6 PRN for DIZZINESS Prescribed by: MILTON KIRK on 09/05/20 223 Ondansetron (Ondansetron Odt) 4 Mg Tab.rapdis, 4 MG PO Q4H Prescribed by: MILTON KIRK on 09/05/20 223 Pantoprazole Sodium (Protonix) 40 Mg Tablet.dr, 40 MG PO DAILY Prescribed by: BEAU VELÁSQUEZ on 02/26/18 1203 Scopolamine (Transderm-Scop) 1 Each Patch.td72, 1 EACH TD Q72H Prescribed by: MILTON KIRK on 09/05/202234 Tamsulosin HCl (Flomax) 0.4 Mg Cap, 0.4 MG PO DAILY Prescribed by: ELEUTERIO BURGESS on 04/27/212208 Review of Systems Review of Systems Constitutional: see HPI EENTM: see HPI Respiratory: see HPI Cardiovascular: see HPI Gastrointestinal: see HPI Genitourinary: see HPI Musculoskeletal: see HPI Skin: see HPI Psychiatric/Neurological: See HPI Hematologic/Lymphatic: See HPI All Other Systems Reviewed Negative Unless Noted: No Past Tkrutnc-Usaeni-Pbdmwo Hx Patient Social History Tobacco Use?: Yes Tobacco type used: Cigarettes Smoking Status: Current Everyday Smoker Substance use?: No Substance type: Other Additional substance use comme: last cocaine use 2 years ago Alcohol Use?: Yes Alcohol Frequency: Once in a while Pt feels they are or have been: No Immunizations Up To Date Tetanus Booster (TDap): Less than 5yrs Seasonal Allergies Seasonal Allergies: No Past Medical History Surgeries: Yes (LEFT HIP SURGERY) Orthopedic Respiratory: No Cardiac: No Neurological: No Reproductive Disorders: No Genitourinary: No Gastrointestinal: No Musculoskeletal: Yes (LEFT HIP SURGERY) Endocrine: No HEENT: No Cancer: No Psychosocial: Yes (DRUG AND ALCOHOL USE/ABUSE) Depression Integumentary: No Blood Disorders: No Family Medical History SOCIAL HISTORY: -ETOH--HISTORY OF ABUSE--1/2 PINT OF WHISKEY/EVERY DAY--CLAIMS NO USE FOR 4 MONTHS, PER PT ON 09/05/20 -DRUGS--HISTORY OF REGULAR COCAINE USE/SNORTED IT--CLAIMS NO USE FOR 1 YEAR, PER PT ON 09/05/20 -SMOKES 1 PPD AND CHEWS TOBACCO Physical Exam Vital Signs Vital Signs - First Documented 07/15/22 18:10 Temp 38.7 Pulse 132 Resp 16 B/P (MAP) 116/73 (87) Pulse Ox 95 O2 Delivery Room Air Capillary Refill : Less Than 3 Seconds Height, Weight, BMI Height: 5'7.00" Weight: 180lbs. 0.0oz. 81.030524tm; 35.00 BMI Method:Estimated General Appearance: No Apparent Distress, WD/WN Eyes: Bilateral Eye Normal Inspection, Bilateral Eye PERRL, Bilateral Eye EOMI HEENT: PERRL/EOMI, TMs Normal, Pharyngeal Erythema, Other Neck: Full Range of Motion, Normal Inspection, Supple Respiratory: Chest Non Tender, Lungs Clear, Normal Breath Sounds Cardiovascular: Regular Rate, Rhythm Gastrointestinal: Non Tender, Soft Back: Normal Inspection, No CVA Tenderness Neurologic/Psychiatric: Oriented x3 Skin: Normal Color Focused Exam Sepsis Stage: Ruled Out Progress/Results/Core Measures Suspected Sepsis SIRS Temperature: Pulse: 132 Respiratory Rate: 16 Blood Pressure 116 /73 Mean: 87 Results/Orders Lab Results Laboratory Tests Test 07/15/22 18:25 Range/Units Influenza Type A (RT-PCR) Not Detected Not Detecte Influenza Type B (RT-PCR) Not Detected Not Detecte SARS-CoV-2 RNA (RT-PCR) Detected H Not Detecte Group A Streptococcus Screen NEGATIVE NEGATIVE My Orders Orders - BRYANT LIM DO Ibuprofen Tablet (Motrin Tablet) (07/15/22 18:30) Rapid Strep A Screen (07/15/22 18:19) Influenza A And B By Pcr (07/15/22 18:19) Covid 19 Inhouse Test (07/15/22 18:19) Medications Given in ED Current Medications Medications Dose Ordered Sig/Christinao Route Start Time Stop Time Status Last Admin Dose Admin Ibuprofen 600 mg ONCE ONCE PO 07/15/22 18:30 07/15/22 18:32 DC 07/15/22 18:26 600 MG Vital Signs/I&O 07/15/22 07/15/22 18:10 18:26 Temp 38.7 38.7 Pulse 132 Resp 16 B/P (MAP) 116/73 (87) Pulse Ox 95 O2 Delivery Room Air Capillary Refill : Less Than 3 Seconds Blood Pressure Mean: 87 Departure Communication (Admissions) COVID/Strep/Influ A: COVID-positive Patient with pharyngitis cough congestion and sore throat for 1 week. COVID- positive. Steroids given for symptomatic relief. Recommendations are continued supportive care and watchful waiting with PCP follow-up. Return precautions reviewed. Patient verbalizes understanding and agreement with discharge instructions prior to departure. Impression Primary Impression: COVID-19 Disposition: 01 HOME, SELF-CARE Condition: Stable Departure-Patient Inst. Decision time for Depature: 18:53 Referrals: [facility] (PCP/Family) Primary Care Physician Patient Instructions: Sore Throat, Adult ED Add. Discharge Instructions: You were evaluated in the emergency department for sore throat and cough. Your COVID test was positive. Please increase fluids and take prednisone as directed. You may take Tylenol as needed for additional relief. Follow-up with your PCP in 3 to 5 days for reevaluation if symptoms persist. Return to the ED if new or worsening symptoms. All discharge instructions reviewed with patient and/or family. Voiced understanding. Scripts Prednisone (Prednisone) 20 Mg Tab 40 MG PO DAILY, #6 TAB 0 Refills Prov: BRYANT LIM DO 07/15/22 BRYANT LIM DO Jul 15, 2022 18:36
[2022-07-15] MEDS ORDERED: PRD20T PO (18:55)
[2022-07-15 19:05] VITALS: BP 115/80
== END 2022-07-15 19:05 | disposition home or self-care (01) ==
LOC: EDUNIT# 18:05 → ER FS 18:08
DX: U07.1 COVID-19 (principal); J02.9 Acute pharyngitis, unspecified; R05.9 Cough, unspecified; R09.81 Nasal congestion; F17.220 Nicotine dependence, chewing tobacco, uncomplicated; F17.210 Nicotine dependence, cigarettes, uncomplicated; Z28.310 Unvaccinated for COVID-19
CPT/HCPCS: 87430; 87636; 99285

== ENCOUNTER 2023-05-17 23:56 | Emergency (ER) | payer SELFPAY ==
[~2023-05-17] VITALS: Ht 152.4 cm; Wt 70.0 kg
[~2023-05-17 23:56] MED LIST changes: -MECL-149 PO; +MECL-291 PO; +PRD20T PO
[2023-05-18] MEDS ORDERED: LACTATED RINGERS 1,000 ML 1,000 ML IV ONE
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
[2023-05-18 00:25] LABS: BASOPHILS % (AUTO) 0 % (0-10); EOSINOPHILS % (AUTO) 0 % (0-10); HEMATOCRIT 43 % (35-52); HEMOGLOBIN 13.6 g/dL (11.5-16.0); LYMPHOCYTES # (AUTO) 2.6 10^3/uL (1.0-4.0); LYMPHOCYTES % (AUTO) 23 % (12-44); MEAN CORPUSCULAR HEMOGLOBIN 27 pg (25-34); MEAN CORPUSCULAR HGB CONC 32 g/dL (32-36); MEAN CORPUSCULAR VOLUME 86 fL (80-99); MEAN PLATELET VOLUME 9.7 fL (9.0-12.2); MONOCYTES # (AUTO) 0.7 10^3/uL (0.0-1.0); MONOCYTES % (AUTO) 6 % (0-12); NEUTROPHILS # (AUTO) 7.7 10^3/uL (1.8-7.8); NEUTROPHILS % (AUTO) 70 % (42-75); PLATELET COUNT 328 10^3/uL (130-400); WHITE BLOOD COUNT 11.1 10^3/uL (4.3-11.0)
[2023-05-18 00:27] VITALS: BP 127/88
[2023-05-18 00:29] LABS: ALBUMIN 4.3 GM/DL (3.2-4.5); CHLORIDE 106 MMOL/L (98-107); POTASSIUM 3.7 MMOL/L (3.6-5.0); SODIUM 139 MMOL/L (135-145)
[2023-05-18 00:31] LABS: CALCIUM 9.6 MG/DL (8.5-10.1)
[2023-05-18 00:32] LABS: GLUCOSE 182 MG/DL (70-105); TOTAL PROTEIN 7.7 GM/DL (6.4-8.2)
[2023-05-18 00:33] LABS: CARBON DIOXIDE 21 MMOL/L (21-32)
[2023-05-18 00:34] LABS: BILIRUBIN,TOTAL 0.4 MG/DL (0.1-1.0)
[2023-05-18 00:36] LABS: ALKALINE PHOSPHATASE 101 U/L (40-136); CREATININE SERUM 0.79 MG/DL (0.60-1.30); GFR ESTIMATED 106
[2023-05-18 00:37] LABS: BUN/CREATININE RATIO 6
[2023-05-18 00:38] LABS: BILIRUBIN,URINE NEGATIVE (NEGATIVE); CLARITY,URINE CLEAR; COLOR,URINE YELLOW; GLUCOSE, URINE (UA) NEGATIVE (NEGATIVE); KETONES,URINE NEGATIVE (NEGATIVE); NITRITE,URINE NEGATIVE (NEGATIVE); PH,URINE 5.5 (5-9); PROTEIN,URINE NEGATIVE (NEGATIVE)
[2023-05-18 00:38] LABS: ACETAMINOPHEN 84 UG/ML (10-30); SALICYLATE < 5.0 MG/DL (5.0-20.0)
[2023-05-18 00:39] LABS: ALANINE AMINOTRANSFERASE 41 U/L (0-55)
[2023-05-18 00:39] LABS: BACTERIA,URINE NEGATIVE /HPF; LEUKOCYTE ESTERASE ,URINE NEGATIVE (NEGATIVE); SQUAMOUS EPITHELIAL CELL,UR 0-2 /HPF
[2023-05-18 00:40] LABS: AMPHETAMINE SCREEN, URINE NEGATIVE (NEGATIVE); BARBITURATE SCREEN URINE NEGATIVE (NEGATIVE); CANNABINOID SCREEN, URINE NEGATIVE (NEGATIVE); COCAINE SCREEN URINE NEGATIVE (NEGATIVE); METHADONE STAT NEGATIVE (NEGATIVE); OPIATE SCREEN URINE NEGATIVE (NEGATIVE); OXYCODONE STAT NEGATIVE (NEGATIVE); TRICYCLIC ANTIDEPRESSANTS SCRE NEGATIVE (NEGATIVE)
[2023-05-18] MEDS ORDERED: NS IV 1000 ML 1,000 ML IV SCH (01:15)
[2023-05-18 03:13] LABS: ALBUMIN 3.6 GM/DL (3.2-4.5); POTASSIUM 3.7 MMOL/L (3.6-5.0)
[2023-05-18 03:15] LABS: CALCIUM 8.3 MG/DL (8.5-10.1)
[2023-05-18 03:16] LABS: TOTAL PROTEIN 6.4 GM/DL (6.4-8.2)
[2023-05-18 03:18] LABS: BILIRUBIN,TOTAL 0.3 MG/DL (0.1-1.0)
[2023-05-18 03:20] LABS: CREATININE SERUM 0.72 MG/DL (0.60-1.30)
== END 2023-05-18 05:06 | disposition home or self-care (01) ==
LOC: EDUNIT# 23:56 → ER 23:58
DX: T39.1X2A Poisoning by 4-Aminophenol derivatives, intentional self-harm, initial encounter (principal); R45.851 Suicidal ideations; F17.210 Nicotine dependence, cigarettes, uncomplicated; F17.220 Nicotine dependence, chewing tobacco, uncomplicated; F17.290 Nicotine dependence, other tobacco product, uncomplicated; Z86.59 Personal history of other mental and behavioral disorders
CPT/HCPCS: 80053; 80306; 81000; 84703 ×2; 85025; 87636; 93005; 93041; 99284; G0480 ×3; 36415; 80320; 80329